=== PATIENT | female | born 1990 | race Caucasian/White ===

== ENCOUNTER → 2017-04-13 11:25 | Outpatient (CLI) | payer OTHER, SELFPAY ==
--- NOTE | 2017-04-13 11:33 | XR_ITS ---
XR foot LT min 3V HISTORY: Pain along the top of the foot in the plantar aspect of the foot ITS.REASON: LEFT FOOT PAIN ORDERING PHYSICIAN: Garrett Denis MD PATIENT AGE: 26 years COMPARISON: None FINDINGS: No fracture or dislocation. No lytic or blastic change. There is normal mineralization.. The joint spaces are well-preserved. No significant degenerative/arthritic changes. No erosive changes evident. IMPRESSION: Negative, no acute finding
== END ==
PROVIDERS: PCP Internal Medicine Adolescent Medicine; Visit Provider Internal Medicine Adolescent Medicine
DX: M79.672 Pain in left foot (principal)
CPT/HCPCS: 73630

== ENCOUNTER → 2018-01-09 12:18 | Outpatient (CLI) | payer OTHER, SELFPAY ==
[2018-01-09 12:32] LABS: Basophils # 0.1 K/mm3 (0-0.2); Basophils % 0.7 % (0.1-2.0); Eosinophils # 0.1 K/mm3 (0.0-0.4); Eosinophils % 1.7 % (0.1-12.0); Hematocrit 40.2 % (37.0-47.0); Hemoglobin 13.1 g/dL (12.2-16.2); Lymphocytes # 2.3 K/mm3 (0.7-4.5); Lymphocytes % 27.9 % (10-50); Mean Corpuscular HGB Conc 32.6 g/dL (31.8-35.4); Mean Corpuscular Hemoglobin 29.9 pg (27.0-31.2); Mean Corpuscular Volume 91.7 fl (81-99); Mean Platelet Volume 7.6 fl (7.4-10.4); Monocytes # 0.5 K/mm3 (0.1-1.0); Monocytes % 5.5 % (1.7-9.3); Neutrophils # 5.2 K/mm3 (1.8-7.8); Neutrophils % 64.1 % (37.0-80.0); Platelet Count 268 K/mm3 (142-424); Red Blood Count 4.39 M/mm3 (4.20-5.40); Red Cell Distribution Width 13.3 % (11.5-17.5); White Blood Count 8.1 K/mm3 (4.8-10.8)
[2018-01-09 13:14] LABS: HCG Qualitative, Serum Negative (Negative)
[2018-01-09 13:17] LABS: Blood Urea Nitrogen 9 mg/dL (7-18); Calcium 8.7 mg/dL (8.5-10.1); Carbon Dioxide 28 mmol/L (21.0-32.0); Chloride 105 mmol/L (98-107); Creatinine,Serum 0.59 mg/dL (0.55-1.02); Estimated Glomerular Filt Rate 123 ml/min (>60); GFR (African American) 149 ML/MIN (>60); Glucose 101 mg/dL (74-106); Sodium 143 mmol/L (136-145)
== END ==
PROVIDERS: Visit Provider Nurse Practitioner Obstetrics & Gynecology
DX: Z01.818 Encounter for other preprocedural examination (principal)
CPT/HCPCS: 36415; 80048; 84703; 85025

== ENCOUNTER 2018-01-13 10:00 | Observation (INO) ==
--- NOTE | 2018-01-13 09:08 | Operative Note ---
Date of procedure: 01/13/18 Pre-op Diagnosis:: Uterovaginal prolapse, enterocele, cystocele, rectocele Post-op Diagnosis:: Uterovaginal prolapse, cystocele, rectocele, enterocele Procedure performed:: Vaginal hysterectomy, bilateral salpingectomy, anterior repair, posterior repair , repair of enterocele Surgeon:: Sukhjinder Munoz MD Compressor House Operator(s):: Shyanne Moseley GAS UTILITY WORKER:: Fabián Pike Anesthesia: GETA Estimated blood loss (mL): 300 Clinical Note:: She is a 27-year-old lady who complains of uterovaginal prolapse. We tried a pessary but it fell out. She had prolapse of the cervix to the vaginal introitus. She had a grade 2 cystocele and a grade 2 rectocele. She had an enterocele. After have just the risks of it she likes to have a vaginal hysterectomy, anterior and posterior repair along with enterocele repair. Operative findings:: She had a normal sized anteverted uterus that prolapsed to the introitus. There is a grade 2 cystocele as well as a grade 2 rectocele. She had an enterocele as well. She had significant laxity of the tissues of the vagina. Her ovaries appeared normal. The fallopian tubes appeared normal and I elected to remove her fallopian tubes at the time of surgery since the ovaries and tubes were easily accessible. Operative note:: She was taken to the operating room where general anesthesia was found be adequate. She was prepped and draped in the normal sterile fashion in the lithotomy position. A weighted speculum was placed in the vagina. The anterior and posterior lip of the cervix were grasped with Rosales tenacula. I then injected 20 cc of 1% Xylocaine with epinephrine circumferentially about the cervix. I then circumscribed the cervix with a knife. I opened up in the posterior cul-de-sac and placed a long weighted speculum through this defect. The left uterosacral ligament was then clamped, cut suture ligated and tagged. This is followed by the left cardinal ligament which was clamped cut and suture ligated. The right uterosacral ligament was then clamped, cut and suture- ligated and tagged. This was followed by the right cardinal ligament which was clamped, cut and suture-ligated. The anterior vaginal mucosa that was then grasped and the bladder was dissected off the anterior cervix. I then opened up into the anterior cul-de-sac. A Paxinos retractor was placed through this defect. I then clamped across the uterine arteries enclosing both the anterior and posterior peritoneum. This was then cut and suture-ligated. I was then able to clamp across the remaining tissue across the utero-ovarian and round ligament complexes. The uterus was then removed from the abdominal cavity. The uterine ovarian complexes were then suture-ligated followed by a free tie. I then closed the posterior cuff using running 2-0 Vicryl suture in a locked fashion. I then placed 2 Castillo sutures to address her enterocele. Using 0 PDS suture I passed the first suture through the posterior vagina and peritoneum. This was then passed through the left perirectal fascia. I then plicated across the posterior peritoneum and through the right perirectal fascia. The suture was then passed through the peritoneum and vagina and left to be tied at the end. The second suture was similarly placed slightly superior to the first suture. I then elected to remove her fallopian tubes. The tube was cut with cautery and then I cauterized along the mesosalpinx and was able to easily remove the tube. This was performed bilaterally. After assuring hemostasis I then packed away the bowel with a warm moist pack. The peritoneum was then closed with 2-0 PDS suture in a pursestring fashion. The packing was then removed. Excellent hemostasis was assured. I then performed an anterior repair by first grasping the vaginal mucosa with 2 Oneco clamps. Using Metzenbaum scissors I made an incision in the midline to approximately 1 cm below the level of the urethra. Using both sharp and blunt dissection I then dissected the bladder away from the vaginal mucosa. I then performed a Blaire plication using 2-0 PDS suture in a [id number] fashion. A small thin strip of vaginal mucosa was removed bilaterally. I then closed the vaginal mucosa using interrupted 2-0 Vicryl suture in a mattress fashion. The vaginal vault was then closed using running 0 Vicryl suture in a locked fashion. I then tied the Castillo sutures in the order in which they were placed. I then performed a posterior repair by first grasping the vaginal mucosa with Teresa clamps near where the yost were from the weighted speculum. I made a V- shaped incision into the perineum. I then grasped the tissue and dissected proximally 1 cm wide piece of vaginal mucosa from the posterior vagina. I then dissected laterally using both sharp and blunt dissection. I dissected up to within 2 cm of the vaginal vault. I then closed the vaginal mucosa using 2-0 Vicryl suture in a locked fashion. I did this in a [id number] fashion. I reapproximated the levator muscles using interrupted 2-0 PDS suture buried beneath the posterior vaginal mucosa. The posterior vaginal mucosa was closed in a running locked fashion of 0 Vicryl suture. I then closed the perineum using 2-0 PDS suture followed by subcuticular 0 Vicryl suture. A Hope cath was then placed in the bladder and clear urine was seen to flow. A vaginal packing was then placed in the vagina. She tolerated the procedure well and was taken to the recovery room in excellent condition. All sponge instrument and needle counts were correct. The estimated blood loss was approximately 300 cc. Condition: stable Disposition: PACU Specimens:: Uterus and fallopian tubes Complications:: None
--- NOTE | 2018-01-13 09:14 | Progress Note ---
[facility] Anesthesia Checklist - Patient Identification Patient Identification: Arm Band - Structural Data Admitted From: Home Planned Operative Procedure/s: tvh, bilateral salpingectomy, a&p repair, enterocele repair Consent for Planned Operative Procedure(s) Verified: Yes Verified Documents: Surgical Consent, History and Physical - NPO Status Verified Time NPO: 00:00 - Additional verifications Anesthesia Reactions: No - Airway Assessment C-Spine Mobility Assessed: Yes (mp2) TMJ Mobility Assessed: Yes Dentition: Good Dentition - Neurological Assessment Level of Consciousness: Awake, Alert - Anesthesia Plan Anesthesia Risk discussed: Yes Anesthesia Plan: Verified ASA Class: I Anesthesia Type: General [facility] History I have reviewed the patient's past medical history: Yes Medical History: Reports:: Gastroesophageal Reflux Disease(GERD), Migraine, Renal Disease Denies:: Cancer, Diabetes Mellitus Type 1, Diabetes Mellitus Type 2, MRSA, Seizures Other Medical History: Reports: Sinus Problems. Denies: Blood Transfusion Reaction Laterality Cases: Bilateral: Tonsillectomy, Other Amputation: No Fractures: No - *Social History Educational Level: Attended College Smoking Status: Never smoker Alcohol Intake: never Alcohol Intake Frequency:: other Substance Use Type: denies use Occupational Status: unemployed Housing: house Household Members: spouse - Psychiatric History Expresses thoughts of harming self/others: None Suicide Plan Description: No Plan *Family Hx:: Cancer, Diabetes ADJUTANT GENERAL history: Spontaneous
--- NOTE | 2018-01-13 09:16 | Progress Note ---
[facility] Anesthesia Record Part II Discharge Time: 09:45 Destination: 2nd floor PACU nurse assessment reviewed?: Yes Patient Condition:: Good Anesthesia Complications:: None
--- NOTE | 2018-01-13 09:16 | Progress Note ---
[place] Anesthesia Record Part I Intake, IV Amount: 1,300 Estimated blood loss (mL): 300 Urine output (mL): 40 Blood Pressure: 100/49 SaO2: 95 Pulse Rate: 53 Respiratory Rate: 16 Temperature: 97.8 F Patient is:: Drowsy, Stable Stable to PACU at:: 09:15
--- NOTE | 2018-01-13 14:07 | Pharmacy Consult Notes ---
[facility] Pharmacy VTE Monitoring - Patient Demographics Admission date: 01/13/18 Report Date: 01/13/18 Time: 14:06 Allergies/Adverse Reactions: Patient Allergies No Known Allergies Allergy (Verified 01/09/18 12:38) Height: 1.55 m Weight: 73.482 kg - VTE Risk Clinical Trial Participant: No - Prophylaxis VTE Prophylaxis Ordered?: Yes Types of VTE Prophylaxis: IPCS Thigh High (POST OP), Pharmacological Location of Applied Device: Bilateral Lower Extremeties Pharmacologic Type: Enoxaparin (POST OP)
[2018-01-13 16:14] LABS: Hematocrit 37.5 % (37.0-47.0); Hemoglobin 12.3 g/dL (12.2-16.2)
[2018-01-14 06:16] LABS: Basophils % 0.1 % (0.1-2.0); Eosinophils # 0.1 K/mm3 (0.0-0.4); Eosinophils % 0.9 % (0.1-12.0); Lymphocytes # 2.5 K/mm3 (0.7-4.5); Lymphocytes % 20.7 % (10-50); Mean Corpuscular HGB Conc 32.8 g/dL (31.8-35.4); Mean Corpuscular Hemoglobin 30.1 pg (27.0-31.2); Mean Corpuscular Volume 91.8 fl (81-99); Mean Platelet Volume 7.4 fl (7.4-10.4); Monocytes # 0.5 K/mm3 (0.1-1.0); Monocytes % 3.9 % (1.7-9.3); Neutrophils % 74.5 % (37.0-80.0); Platelet Count 256 K/mm3 (142-424)
[2018-01-14 06:17] LABS: Hemoglobin 10.8 g/dL (12.2-16.2)
[2018-01-14 06:26] LABS: Anion Gap 11.6 mEq/L (5-15); Calcium 8.2 mg/dL (8.5-10.1); Potassium 3.6 mmoL/L (3.5-5.1)
--- NOTE | 2018-01-14 10:43 | Discharge Summary ---
General - General Admission date:: 01/13/18 Discharge date: 01/14/18 HPI HPI: She is a 27-year-old lady who complains of uterovaginal prolapse. She had prolapse of this to the introitus. She also had a grade 2 cystocele grade 2 rectocele as well as an enterocele. She was offered vaginal hysterectomy, anterior repair, posterior repair and enterocele repair. Hospital Course Hospital Course: On December 22, 2017 she underwent a vaginal hysterectomy, anterior and posterior repair along with repair of enterocele. Also elected to remove her fallopian tubes since they were easily accessible. She has done well operatively and has remained afebrile throughout her hospitalization. She is eating and drinking and ambulating. She denies any shortness of breath, chest pain or calf tenderness. She has had her Hope catheter removed and is voiding well. She has not had a bowel movement. Her pain is well controlled with oral narcotic pain medicine as well as oral Toradol. She will be discharged home today to follow-up with me in approximately 2 weeks time. She was given the usual instructions with respect to limiting her activity, driving and sexual activity. She was given instructions to nut picker a stool softener. She was given a prescription for Percocet 5/325, 30 tablets. She also has ibuprofen at home and will take this as well. Her condition on discharge is stable. Objective Vital signs: Temp Pulse Resp BP Pulse Ox 98.0 F 69 18 125/81 100 01/14/18 09:32 01/14/18 09:32 01/14/18 09:32 01/14/18 09:32 01/14/18 09:39 - Detailed Eye Exam Eyelids: Left normal inspection Results Labs on day of discharge: Labs from last 24 hours 01/14/18 01/14/18 01/13/18 06:07 06:07 16:03 WBC 12.0 H RBC 3.60 L Hgb 10.8 L D 12.3 Hct 33.0 L 37.5 MCV 91.8 MCH 30.1 MCHC 32.8 RDW 13.0 Plt Count 256 MPV 7.4 Neut % (Auto) 74.5 Lymph % (Auto) 20.7 Garrard % (Auto) 3.9 Eos % (Auto) 0.9 Baso % (Auto) 0.1 Neut # (Auto) 9.0 H Lymph # (Auto) 2.5 Garrard # (Auto) 0.5 Eos # (Auto) 0.1 Baso # (Auto) 0.0 Sodium 141 Potassium 3.6 Chloride 106 Carbon Dioxide 27 Anion Gap 11.6 BUN 6 L Creatinine 0.69 Estimated Creat Clear 143 Estimated GFR 103 Est GFR ( Amer) 124 Glucose 136 H Calcium 8.2 L Preliminary micro results at discharge 01/13/18 08:51 Urine Culture - Preliminary Urine,Catheterized NO GROWTH AFTER 24 HOURS DS: Diagnosis - Discharge Diagnosis (1) Uterovaginal prolapse, incomplete Status: Acute (2) Cystocele with prolapse Status: Acute (3) Cystocele with rectocele Status: Acute (4) Pelvic enterocele, congenital or acquired Status: Acute Discharge Plan - Patient Discharge Instructions ACTIVITY: No heavy lifting DIET: continue same diet Patient Instructions: DI for Vaginal Hysterectomy - Follow up Plan Disposition: Home, Self-Senior Care Medications: Home Medications Medication Instructions Recorded Confirmed Type diclofenac sodium 75 mg 75 mg PO BID 03/29/17 01/09/18 History tablet,delayed release magnesium 200 mg tablet 100 mg PO DAILY tab 03/29/17 01/13/18 History Prescriptions/Medication Reconciliation: New Oxycodone HCl/Acetaminophen [Percocet 5/325mg tablet] 1 - 2 tab PO Q4-6H PRN #30 tab PRN Reason: Severe Pain Continue diclofenac sodium 75 mg tablet,delayed release 75 mg PO BID magnesium 200 mg tablet 100 mg PO DAILY tab
== END 2018-01-14 10:50 | disposition home or self-care (01) ==
PROVIDERS: ADMIT Nurse Practitioner Obstetrics & Gynecology; ATTEND Nurse Practitioner Obstetrics & Gynecology

== ENCOUNTER → 2020-08-26 16:19 | Outpatient (CLI) | payer OTHER, SELFPAY ==
[2020-08-26 16:35] LABS: Basophils # 0.1 K/mm3 (0-0.2); Basophils % 0.7 % (0.1-2.0); Eosinophils # 0.2 K/mm3 (0.0-0.4); Hematocrit 42.3 % (37.0-47.0); Hemoglobin 13.9 g/dL (12.2-16.2); Lymphocytes # 3.2 K/mm3 (0.7-4.5); Lymphocytes % 39.6 % (10-50); Mean Corpuscular HGB Conc 32.9 g/dL (31.8-35.4); Mean Corpuscular Hemoglobin 29.5 pg (27.0-31.2); Mean Corpuscular Volume 89.7 fl (81-99); Mean Platelet Volume 7.5 fl (7.4-10.4); Monocytes # 0.4 K/mm3 (0.1-1.0); Neutrophils # 4.3 K/mm3 (1.8-7.8); Neutrophils % 52.7 % (37.0-80.0); Platelet Count 284 K/mm3 (142-424); Red Blood Count 4.71 M/mm3 (4.20-5.40); Red Cell Distribution Width 12.4 % (11.5-17.5); White Blood Count 8.1 K/mm3 (4.8-10.8)
[2020-08-26 17:19] LABS: Alanine Aminotransferase 64 U/L (12-78); Albumin Level 4.9 g/dl (3.5-5.0); Albumin/Globulin Ratio 1.6 (1.1-1.8); Alkaline Phosphatase 72 U/L (38-126); Anion Gap 18.1 mEq/L (5-15); Aspartate Amino Transferase 52 U/L (14-36); Bilirubin,Total 0.5 mg/dl (0.2-1.3); Blood Urea Nitrogen 6 mg/dl (7-17); Calcium 9.7 mg/dl (8.4-10.2); Carbon Dioxide 26 mmol/L (22.0-30.0); Chloride 103 mmol/L (98-107); Estimated Glomerular Filt Rate 118 ml/min (>60); GFR (African American) 143 ML/MIN (>60); Glucose 108 mg/dl (74-100); Potassium 4.1 mmoL/L (3.5-5.1); Sodium 143 mmol/L (136-145); Total Protein,Serum 7.9 g/dl (6.3-8.2)
[2020-08-27 12:09] LABS: Hemoglobin A1C 5.4 % (4.0-6.0)
== END ==
PROVIDERS: Internal Medicine Adolescent Medicine; Visit Provider Nurse Practitioner Family
DX: R10.11 Right upper quadrant pain (principal); K52.9 Noninfective gastroenteritis and colitis, unspecified; R73.9 Hyperglycemia, unspecified
CPT/HCPCS: 36415; 80053; 83036; 85025

== ENCOUNTER → 2020-09-01 08:30 | Outpatient (CLI) | payer OTHER, SELFPAY ==
--- NOTE | 2020-09-01 08:34 | US_ITS ---
PROCEDURE: US GALLBLADDER CLINICAL INDICATION: RUQ PAIN COMPARISON: No exams were available for comparison FINDINGS: Pancreas: Visualized pancreas is unremarkable. Liver: Diffuse fatty infiltration of the liver. No focal liver lesions are noted.. There is appropriate direction of blood flow within a non dilated portal vein. Right kidney: Unremarkable appearing. No hydronephrosis. Right kidney measures 11.4 x 3.1 x 4.9 centimeters. Gallbladder: No stones are evident. Small amount of sludge is noted within the gallbladder. There is a focal isoechoic lesion noted in the nondependent portion of the gallbladder measuring approximately 3 millimeters, most likely represents a polyp. There is no gallbladder wall thickening. Common duct is normal in diameter. IMPRESSION: Polyp in the gallbladder. Small amount of sludge. No gallbladder calculi are noted Dictated by: Layla Dillon 09/01/2020 10:55 Layla Dillon in OV 09/01/2020 10:55
[2020-09-01 10:25] LABS: Alanine Aminotransferase 74 U/L (12-78); Albumin/Globulin Ratio 1.6 (1.1-1.8); Alkaline Phosphatase 77 U/L (38-126); Anion Gap 14.6 mEq/L (5-15); Aspartate Amino Transferase 58 U/L (14-36); Bilirubin,Total 0.7 mg/dl (0.2-1.3); Blood Urea Nitrogen 10 mg/dl (7-17); Calcium 9.5 mg/dl (8.4-10.2); Carbon Dioxide 28 mmol/L (22.0-30.0); Chloride 103 mmol/L (98-107); Estimated Glomerular Filt Rate 99 ml/min (>60); GFR (African American) 120 ML/MIN (>60); Globulin 3.1 g/dL (1.3-3.2); Glucose 101 mg/dl (74-100); Potassium 4.6 mmoL/L (3.5-5.1); Sodium 141 mmol/L (136-145); Total Protein,Serum 8.1 g/dl (6.3-8.2)
== END ==
PROVIDERS: PCP Internal Medicine Adolescent Medicine; Visit Provider Nurse Practitioner Family
DX: R10.11 Right upper quadrant pain (principal); R74.8 Abnormal levels of other serum enzymes
CPT/HCPCS: 36415; 76705; 80053

== ENCOUNTER → 2020-09-02 09:35 | Outpatient (CLI) | payer OTHER, SELFPAY ==
[2020-09-02 14:46] LABS: Alanine Aminotransferase 81 U/L (12-78); Albumin/Globulin Ratio 1.7 (1.1-1.8); Alkaline Phosphatase 76 U/L (38-126); Anion Gap 15.5 mEq/L (5-15); Aspartate Amino Transferase 63 U/L (14-36); Bilirubin,Total 0.7 mg/dl (0.2-1.3); Blood Urea Nitrogen 10 mg/dl (7-17); Calcium 9.6 mg/dl (8.4-10.2); Carbon Dioxide 26 mmol/L (22.0-30.0); Chloride 103 mmol/L (98-107); Estimated Glomerular Filt Rate 99 ml/min (>60); GFR (African American) 120 ML/MIN (>60); Glucose 96 mg/dl (74-100); Potassium 4.5 mmoL/L (3.5-5.1); Sodium 140 mmol/L (136-145)
[2020-09-04 09:51] LABS: Hep A Ab, IgM Negative (Negative); Hepatitis B Core Antibody IgM Negative (Negative); Hepatitis B Surface Antigen Negative (Negative); Hepatitis C Antibody <0.1 s/co ratio (0.0-0.9)
== END ==
PROVIDERS: Visit Provider Nurse Practitioner Family
DX: R10.11 Right upper quadrant pain (principal); R74.8 Abnormal levels of other serum enzymes
CPT/HCPCS: 36415; 80053; 80074

== ENCOUNTER → 2020-09-20 09:06 | Outpatient (CLI) | payer OTHER, SELFPAY ==
[2020-09-20 09:43] LABS: Urine Pregnancy, HCG Qual. Negative (Negative)
[2020-09-20 09:52] LABS: Basophils # 0.1 K/mm3 (0-0.2); Basophils % 0.9 % (0.1-2.0); Eosinophils # 0.1 K/mm3 (0.0-0.4); Eosinophils % 1.1 % (0.1-12.0); Hematocrit 39.8 % (37.0-47.0); Hemoglobin 13.8 g/dL (12.2-16.2); Lymphocytes # 2.8 K/mm3 (0.7-4.5); Lymphocytes % 38.9 % (10-50); Mean Corpuscular HGB Conc 34.7 g/dL (31.8-35.4); Mean Corpuscular Hemoglobin 30.4 pg (27.0-31.2); Mean Corpuscular Volume 87.7 fl (81-99); Mean Platelet Volume 8.3 fl (7.4-10.4); Monocytes # 0.4 K/mm3 (0.1-1.0); Monocytes % 6.2 % (1.7-9.3); Neutrophils # 3.7 K/mm3 (1.8-7.8); Neutrophils % 52.9 % (37.0-80.0); Platelet Count 283 K/mm3 (142-424); Red Blood Count 4.54 M/mm3 (4.20-5.40); Red Cell Distribution Width 13.3 % (11.5-17.5); White Blood Count 7.1 K/mm3 (4.8-10.8)
[2020-09-20 11:22] LABS: Chloride 106 mmol/L (98-107); Potassium 4.2 mmoL/L (3.5-5.1); Sodium 141 mmol/L (136-145)
[2020-09-20 11:25] LABS: Alanine Aminotransferase 65 U/L (12-78); Albumin Level 4.4 g/dl (3.5-5.0); Albumin/Globulin Ratio 1.5 (1.1-1.8); Alkaline Phosphatase 76 U/L (38-126); Anion Gap 13.2 mEq/L (5-15); Aspartate Amino Transferase 51 U/L (14-36); Bilirubin,Total 0.5 mg/dl (0.2-1.3); Blood Urea Nitrogen 7 mg/dl (7-17); Calcium 9.1 mg/dl (8.4-10.2); Carbon Dioxide 26 mmol/L (22.0-30.0); Estimated Glomerular Filt Rate 118 ml/min (>60); GFR (African American) 143 ML/MIN (>60); Glucose 110 mg/dl (74-100); Total Protein,Serum 7.4 g/dl (6.3-8.2)
== END ==
PROVIDERS: Visit Provider Surgery
DX: Z01.812 Encounter for preprocedural laboratory examination (principal); Z11.52 Encounter for screening for COVID-19; K82.9 Disease of gallbladder, unspecified
CPT/HCPCS: 80053; 81025; 85025; U0003

== ENCOUNTER 2020-09-23 09:28 | Day surgery (SDC) | payer OTHER, SELFPAY ==
[2020-09-18 14:41] VITALS: BMI 32.1
[2020-09-23] VITALS (10 sets, daily range): BP systolic 111–134; BP diastolic 66–88; PULSE 55–71; RESP 12–18; TEMP 36.3–43; O2SAT 97–99
--- NOTE | 2020-09-23 10:16 | HMH.ANESCL ---
[facility] Anesthesia Checklist - Patient Identification Patient Identification: Arm Band - Structural Data Admitted From: Home Planned Operative Procedure/s: Laparoscopic Cholecystectomy Consent for Planned Operative Procedure(s) Verified: Yes Verified Documents: Surgical Consent, History and Physical - NPO Status Verified Time NPO: 00:00 - Additional verifications Anesthesia Reactions: No Hx Blood Transfusions: No Blood Transfusion Reaction: No - Airway Assessment C-Spine Mobility Assessed: Yes (mp2) TMJ Mobility Assessed: Yes Dentition: Good Dentition - Neurological Assessment Level of Consciousness: Awake, Alert - Anesthesia Plan Anesthesia Risk discussed: Yes Anesthesia Plan: Verified ASA Class: II Anesthesia Type: General [facility] History I have reviewed the patient's past medical history: Yes Medical History: Reports:: Anxiety, Gastroesophageal Reflux Disease(GERD), Migraine Denies:: Cancer, Diabetes Mellitus Type 1, Diabetes Mellitus Type 2, MRSA, Seizures *Have you ever received a pneumonia vaccine?: No *Have you received a flu vaccine this season?: Yes Other Medical History: Reports: Sinus Problems. Denies: Blood Transfusion Reaction Anesthesia experience/problems:: nac Laterality Cases: Bilateral: Tonsillectomy, Other Other Surgeries: Yes: Hysterectomy-Partial Amputation: No Fractures: No - *Social History Last grade of school completed: Some college Smoking Status: Current every day smoker Tobacco Type: e-cigarettes # Packs/Day (cigarettes): 1 Alcohol Intake: never Alcohol Intake Frequency:: holidays/special occasions only Substance Use Type: denies use *Occupational Status:: unemployed Housing: house Household Members: spouse *Travel in the last 8 weeks: None Family Hx:: Cancer BREAKER UP history: Spontaneous
--- NOTE | 2020-09-23 11:34 | HMH.OPNOTE ---
Date of procedure: 09/23/20 Pre-op Diagnosis:: Gallbladder disease Post-op Diagnosis:: Same Procedure performed:: Laparoscopic cholecystectomy Surgeon:: Tu Bowles MD PROCESSING TALC AND BORATE SUPERVISOR:: Slava Menon Anesthesia: GETA Estimated blood loss (mL): 15 Clinical Note:: Patient is a 30-year-old female referred by Laverne Dykes and Dr. Garrett Denis's office for gallbladder. occurred when she was She states that about 2 weeks ago she had a severe attack which was consistent with biliary colic. This occurred while she was sitting on the couch. She had severe right upper quadrant pain. She states that the pain was more severe than childbirth. Retrospectively, she states that she has had some similar symptoms but much less severe over a couple of years. She subsequently underwent gallbladder ultrasound which reveals biliary sludge and findings of possible polyp measuring 3 mm. She states that since she had that severe attack 2 weeks ago she has had at least a couple of more attacks but much more minor. The options were discussed with the patient. She strongly desired proceeding with cholecystectomy as soon as possible. Operative findings:: She had a somewhat distended gallbladder. There was appreciable fatty infiltration of the liver. Operative note:: Patient was taken to the operating room. She was given preoperative intravenous antibiotics. In the operating room she was placed in a supine position. General anesthesia was induced via endotracheal tube. Abdomen was prepped and draped in the standard surgical fashion. Subumbilical skin incision was made and while performing abdominal wall left Veress needle was inserted. CO2 pneumoperitoneum was achieved to 15 mmHg. 11 mm optical trocar was inserted at the umbilicus. Intraperitoneal contents were visualized. She was positioned in reverse Trendelenburg left side down. A couple 5 mm trochars were inserted in the right abdomen. This was actually in the right mid abdomen due to some enlargement of the fatty liver. 10 mm trocar was inserted in the epigastrium. Liver was elevated. Gallbladder was identified and grasped retracted anteriorly and superiorly over the dome of the liver. Infundibulum/Rutherford's pouch of the gallbladder was retracted anterolaterally. Blunt dissection was carried out the neck of the gallbladder bluntly incising the visceral peritoneum. Careful dissection was carried out isolating the cystic duct and cystic artery. Cystic duct was isolated, multiply clipped, and sharply divided. Cystic artery was carefully coagulated with SHYAM ultrasonic harmonic bonita and divided. Gallbladder was dissected free from the liver in a retrograde fashion using SHYAM ultrasonic robotic bonita. Gallbladder was placed within an Endo Catch retrieval device and removed the peritoneal cavity via the umbilical trocar site. Limited irrigation and suctioning was performed of the gallbladder fossa and perihepatic space. There appeared to be good hemostasis. Trochars were removed as CO2 pneumoperitoneum was evacuated. Fascia at the umbilicus was closed with 0 Vicryl suture. Local anesthetic was infiltrated. Skin incisions were closed with 4-0 Monocryl subcuticular fashion. Steri-Strips and dressings were applied. Condition: stable Disposition: PACU Specimens:: Gallbladder and contents Complications:: None immediately apparent
--- NOTE | 2020-09-23 11:43 | P.PN_ITS ---
[facility] Anesthesia Record Part I Intake, IV Amount: 1,200 Estimated blood loss (mL): 0 Urine output (mL): 0 Blood Pressure: 134/80 SaO2: 97 Pulse Rate: 71 Respiratory Rate: 12 Temperature: 97.8 F Patient is:: Awake, Stable Stable to PACU at:: 11:40
--- NOTE | 2020-09-23 12:32 | SUR.PHASEII ---
NORCO 5/325MG GIVEN ORDERED.
--- NOTE | 2020-09-24 11:00 | HMH.ANESII ---
[facility] Anesthesia Record Part II Discharge Time: 11:59 Destination: Surgical Day Care (OP Surgery) PACU nurse assessment reviewed?: Yes Patient Condition:: Good Anesthesia Complications:: None Swallowing reflex intact?: Yes Cyanosis?: No Blood Pressure: 126/85 Pulse Rate: 59 Temperature: 98.4 F Mental Status: Alert & Oriented Pain level:: 0 Nausea and/or vomitting:: None Intake, IV Amount: 0
[2020-09-24 11:01] VITALS: BP 126/85; PULSE 59; TEMP 36.9
== END 2020-09-23 12:45 | disposition home or self-care (01) ==
LOC: OR 09:29
PROVIDERS: PCP Internal Medicine Adolescent Medicine; Visit Provider Surgery
PROC: 0FT44ZZ Resection of Gallbladder, Percutaneous Endoscopic Approach (ICD-10-PCS; CPT 47562; principal; 2020-09-23 11:00)
DX: K82.9 Disease of gallbladder, unspecified (principal); K76.0 Fatty (change of) liver, not elsewhere classified; K21.9 Gastro-esophageal reflux disease without esophagitis; G43.909 Migraine, unspecified, not intractable, without status migrainosus; F41.9 Anxiety disorder, unspecified; Z72.0 Tobacco use; Z79.899 Other long term (current) drug therapy; Z80.9 Family history of malignant neoplasm, unspecified
CPT/HCPCS: 47562; 96374; J2405; J2710

== ENCOUNTER 2020-09-29 13:01 | Outpatient (CLI) | payer OTHER, SELFPAY ==
[2020-09-29 13:10] VITALS: BP 142/78; PULSE 68; RESP 20; TEMP 37.2; O2SAT 95
[2020-09-29 13:30] VITALS: BP 128/74; PULSE 68; RESP 20; TEMP 36.9
== END 2020-09-29 13:30 | disposition home or self-care (01) ==
LOC: INF 13:04
PROVIDERS: PCP Internal Medicine Adolescent Medicine; Visit Provider Surgery
DX: Z90.49 Acquired absence of other specified parts of digestive tract (principal); K91.5 Postcholecystectomy syndrome
CPT/HCPCS: 96372

== ENCOUNTER → 2021-03-07 10:20 | Outpatient (CLI) | payer OTHER, SELFPAY ==
[2021-03-07 10:24] LABS: Adenovirus F 40/41, stool Not Detected (NotDetected); Astrovirus Not Detected (NotDetected); Campylobacter Not Detected (NotDetected); Clostridium Difficile A/B, PCR Not Detected (NotDetected); Cryptosporidium Not Detected (NotDetected); Cyclospora Cayetanesis Not Detected (NotDetected); Entamoeba histolytica Not Detected (NotDetected); Enteroaggregative E coli Not Detected (NotDetected); Enteropathogenic E coli Not Detected (NotDetected); Enterotoxigenic E coli Not Detected (NotDetected); Giardia lamblia Not Detected (NotDetected); Norovirus Not Detected (NotDetected); Plesimonas Shigalloides, PCR Not Detected (NotDetected); Rotavirus A Not Detected (NotDetected); Salmonella, PCR Not Detected (NotDetected); Sapovirus Not Detected (NotDetected); Shiga-like toxin E coli Not Detected (NotDetected); Shigella Enterovasive E coli Not Detected (NotDetected); Vibrio Cholerae Not Detected (NotDetected); Vibrio, PCR Not Detected (NotDetected); Yersinia Entercolitica, PCR Not Detected (NotDetected)
[2021-03-10 15:18] LABS: Calprotectin, Fecal 30 ug/g (0-120)
[2021-03-11 15:12] LABS: Lactoferrin, Fecal, Quant. <1.00 ug/mL(g) (0.00-7.24)
== END ==
LOC: LAB 10:20
PROVIDERS: PCP Internal Medicine Adolescent Medicine; Visit Provider Internal Medicine Adolescent Medicine
DX: R10.84 Generalized abdominal pain (principal)
CPT/HCPCS: 83630; 83993; 87507

== ENCOUNTER → 2021-03-09 07:58 | Outpatient (CLI) | payer OTHER, SELFPAY ==
[2021-03-09 08:02] LABS: Microscopic, Urine URINE MICROSCOPIC (MICROSCOPIC)
[2021-03-09 08:38] LABS: Appearance,Urine CLEAR (Clear); Bilirubin,Urine Negative (Negative); Blood, Urine Negative (Negative); Color,Urine YELLOW (Yellow); Glucose,Urine (UA) Negative (Negative); Ketones,Urine Negative (Negative); Leukocyte Esterase,Urine Negative (Negative); Nitrate,Urine Negative (Negative); Protein,Urine Negative (Negative); Specific Gravity, Urine >= 1.030 (1.005-1.030); Urobilinogen,Urine 0.2 EU/dl (0.2)
[2021-03-09 09:05] LABS: Basophils # 0.1 K/mm3 (0-0.2); Basophils % 1.2 % (0.1-2.0); Eosinophils # 0.1 K/mm3 (0.0-0.4); Eosinophils % 1.2 % (0.1-12.0); Hematocrit 44.4 % (37.0-47.0); Lymphocytes # 2.9 K/mm3 (0.7-4.5); Lymphocytes % 35.2 % (10-50); Mean Corpuscular HGB Conc 33.8 g/dL (31.8-35.4); Mean Corpuscular Hemoglobin 31.1 pg (27.0-31.2); Mean Corpuscular Volume 92.1 fl (81-99); Mean Platelet Volume 8.5 fl (7.4-10.4); Monocytes # 0.5 K/mm3 (0.1-1.0); Monocytes % 6.3 % (1.7-9.3); Neutrophils # 4.6 K/mm3 (1.8-7.8); Neutrophils % 56.1 % (37.0-80.0); Platelet Count 331 K/mm3 (142-424); Red Blood Count 4.82 M/mm3 (4.20-5.40); Red Cell Distribution Width 12.8 % (11.5-17.5); White Blood Count 8.2 K/mm3 (4.8-10.8)
[2021-03-09 09:57] LABS: Chloride 104 mmol/L (98-107)
[2021-03-09 09:58] LABS: Potassium 4.3 mmoL/L (3.5-5.1); Sodium 138 mmol/L (136-145)
[2021-03-09 10:00] LABS: Amylase 68 U/L (30-110); Blood Urea Nitrogen 11 mg/dl (7-17); Estimated Glomerular Filt Rate 118 ml/min (>60); GFR (African American) 143 ML/MIN (>60)
[2021-03-09 10:01] LABS: Alanine Aminotransferase 36 U/L (12-78); Albumin Level 4.8 g/dl (3.5-5.0); Albumin/Globulin Ratio 1.6 (1.1-1.8); Alkaline Phosphatase 52 U/L (38-126); Anion Gap 14.3 mEq/L (5-15); Aspartate Amino Transferase 39 U/L (14-36); Bilirubin,Total 0.6 mg/dl (0.2-1.3); Calcium 9.3 mg/dl (8.4-10.2); Carbon Dioxide 24 mmol/L (22.0-30.0); Glucose 107 mg/dl (74-100); Lipase 183 U/L (23-300); Total Protein,Serum 7.8 g/dl (6.3-8.2)
[2021-03-09 19:25] LABS: Squamous Epithelial Cell,Urine Occasional #/hpf (0-5)
== END ==
LOC: LAB 07:59
PROVIDERS: PCP Internal Medicine Adolescent Medicine; Visit Provider Internal Medicine Adolescent Medicine
DX: R10.13 Epigastric pain (principal)
CPT/HCPCS: 36415; 80053; 81001; 82150; 83690; 85025

== ENCOUNTER 2021-03-09 20:06 | Emergency (ER) | payer OTHER, SELFPAY ==
[2021-03-09 20:07] VITALS: BP 149/85; PULSE 80; RESP 16; TEMP 36.5; O2SAT 99; BMI 29.2
--- NOTE | 2021-03-09 20:17 | CT_ITS ---
PROCEDURE INFORMATION: Exam: CT Abdomen And Pelvis With Contrast Exam date and time: 03/09/2021 8:17 PM Age: 30 years old Clinical indication: Abdominal pain TECHNIQUE: Imaging protocol: Computed tomography of the abdomen and pelvis with contrast. Radiation optimization: All CT scans at this facility use at least one of these dose optimization techniques: automated exposure control; mA and/or kV adjustment per patient size (includes targeted exams where dose is matched to clinical indication); or iterative reconstruction. Contrast material: ISOVUE; Contrast volume: 75 ml; Contrast route: IV; COMPARISON: CT ABDOMEN PELVIS W CON 09/24/2018 12:10 PM FINDINGS: Lungs: No mass/infiltrate at either lung base. No pleural effusion. Liver: The liver appears enlarged. There is no evidence of intra hepatic mass. No evidence of intrahepatic biliary dilatation. Gallbladder and bile ducts: The gallbladder is surgically absent. No evidence of extrahepatic biliary dilatation. Pancreas: Normal. No ductal dilation. Spleen: Normal. No splenomegaly. Adrenal glands: Normal. No mass. Kidneys and ureters: Normal. No hydronephrosis. Stomach and bowel: Unremarkable. No obstruction. No mucosal thickening. Small bowel mesentery is normal. Appendix: Unremarkable. Intraperitoneal space: There is a small amount of free fluid present within the cul-de-sac. No evidence of free air. Vasculature: Unremarkable. No abdominal aortic aneurysm. Lymph nodes: Unremarkable. No enlarged lymph nodes. Urinary bladder: Unremarkable as visualized. Reproductive: The uterus is difficult to visualize on this examination. There is a 3.2 cm peripherally enhancing structure present within the left adnexal region thought to represent the left ovary. The right ovary is not clearly visualized on this examination. Bones/joints: Unremarkable. No acute fracture. Soft tissues: There is a small umbilical hernia which contains fat. IMPRESSION: 1. The appendix is visualized and unremarkable. No evidence of acute process within the abdomen. 2. Difficulty in visualizing the uterus and the right ovary. This raises the possibility of prior hysterectomy and right salpingo oophorectomy. 3. Small amount of nonspecific free fluid identified within the cul-de-sac. 4. There is a small umbilical hernia which contains fat.
[2021-03-09 20:31] VITALS: BP 115/76; PULSE 88; O2SAT 100
[2021-03-09 20:59] LABS: Alanine Aminotransferase 37 U/L (12-78); Albumin/Globulin Ratio 1.5 (1.1-1.8); Alkaline Phosphatase 62 U/L (38-126); Amylase 80 U/L (30-110); Anion Gap 15.8 mEq/L (5-15); Aspartate Amino Transferase 47 U/L (14-36); Bilirubin,Total 0.4 mg/dl (0.2-1.3); Blood Urea Nitrogen 12 mg/dl (7-17); Calcium 9.5 mg/dl (8.4-10.2); Carbon Dioxide 24 mmol/L (22.0-30.0); Chloride 102 mmol/L (98-107); Creatinine Clearance Estimated 159 mL/min (50-200); Estimated Glomerular Filt Rate 118 ml/min (>60); GFR (African American) 143 ML/MIN (>60); Globulin 3.4 g/dL (1.3-3.2); Glucose 93 mg/dl (74-100); Lipase 75 U/L (23-300); Potassium 3.8 mmoL/L (3.5-5.1); Sodium 138 mmol/L (136-145); Total Protein,Serum 8.4 g/dl (6.3-8.2)
[2021-03-09 21:00] VITALS: BP 120/77; PULSE 72; O2SAT 100
--- NOTE | 2021-03-09 21:01 | HMH.EDNVD ---
ED Disposition Clinical Impression: Abdominal pain Qualifiers: Abdominal location: right upper quadrant Qualified Code(s): R10.11 - Right upper quadrant pain Disposition: Home, Self-Care Condition on Discharge: Good Instructions: DI for Acute Abdominal Pain Additional Instructions: use meds and call pcp for follow up Referrals: Garrett Denis MD [Primary Care Provider] - - Critical Care Critical Care Time: No Attestation: On 03/09/21, the high probability of a clinically significant, sudden or life threatening deterioration of the following system(s) required my full and direct attention, intervention and personal management. The time I documented below is in addition to time spent performing reported procedures but includes the following listed in this critical care notation. Medical Decision Making - Medical Records Medical records reviewed: Yes: I reviewed the patient's medical records. - Darius Inquiry Pt receiving controlled substance: No Vital Signs: 03/09/21 20:07 03/09/21 20:31 03/09/21 21:00 Temperature 97.7 F Temperature Source Oral Pulse Rate 88 72 Pulse Rate [Right Radial] 80 Respiratory Rate 16 Blood Pressure 115/76 120/77 Blood Pressure [Right Arm] 149/85 H Blood Pressure Mean [Right Arm] 106 Blood Pressure Source [Right Arm] Automatic Cuff Blood Pressure Position [Right Arm] Sitting 02 Sat by Pulse Oximetry 99 100 100 Oxygen Delivery Method Room Air Room Air Room Air 03/09/21 22:00 Temperature Temperature Source Pulse Rate 70 Pulse Rate [Right Radial] Respiratory Rate Blood Pressure 103/80 L Blood Pressure [Right Arm] Blood Pressure Mean [Right Arm] Blood Pressure Source [Right Arm] Blood Pressure Position [Right Arm] 02 Sat by Pulse Oximetry 100 Oxygen Delivery Method Room Air - Lab Data Lab results reviewed: Yes: I reviewed the patient's lab results. Lab Results 03/09/21 20:12: Urine HCG, Qual Negative 03/09/21 20:37: WBC 9.1, RBC 4.90, Hgb 14.8, Hct 45.4, MCV 92.5, MCH 30.2, MCHC 32.6, RDW 12.9, Plt Count 294, MPV 8.0, Neut % (Auto) 58.1, Lymph % (Auto) 33.8, [place] % (Auto) 5.8, Eos % (Auto) 0.9, Baso % (Auto) 1.3, Neut # (Auto) 5.3, Lymph # (Auto) 3.1, [place] # (Auto) 0.5, Eos # (Auto) 0.1, Baso # (Auto) 0.1 03/09/21 20:37: Sodium 138, Potassium 3.8, Chloride 102, Carbon Dioxide 24, Anion Gap 15.8 H, BUN 12, Creatinine 0.60, Estimated Creat Clear 159, Estimated GFR 118, Est GFR ( Amer) 143, Glucose 93, Calcium 9.5, Total Bilirubin 0.4, AST 47 H, ALT 37, Alkaline Phosphatase 62, C-Reactive Protein 2.3, Total Protein 8.4 H, Albumin 5.0, Globulin 3.4 H, Albumin/Globulin Ratio 1.5, Lipase 75 03/09/21 20:37: ESR 16 03/09/21 20:37: Amylase 80 D, Procalcitonin 0.035 Result diagrams: 03/09/21 20:37 03/09/21 20:37 Orders (Tests/Meds): ED MEDICATIONS Generic Name Dose Route Start Last Admin Trade Name Freq PRN Reason Stop Dose Admin Sodium Chloride 1,000 mls @ 999 mls/hr 03/09/21 20:30 03/09/21 20:48 Sod Chlor 0.9% 1000ml Bag IV 03/09/21 21:30 999 mls/hr .Q1H1M IVON Administration Discontinued Medications Generic Name Dose Route Start Last Admin Trade Name Freq PRN Reason Stop Dose Admin Iopamidol 75 ml 03/09/21 21:22 03/09/21 21:32 Iopamidol-370 (76%);100ml Bottle IV 03/09/21 21:23 75 ml ONCE ONE Administration Ketorolac Tromethamine 30 mg 03/09/21 20:21 03/09/21 20:47 Ketorolac 30mg/Ml Vial IV 03/09/21 20:22 30 mg ONCE ONE Administration Ondansetron HCl 4 mg 03/09/21 20:21 03/09/21 20:47 Ondansetron 4mg/2ml Vial IV 03/09/21 20:22 4 mg ONCE ONE Administration Sodium Chloride 10 ml 03/09/21 21:22 03/09/21 21:32 Sodium Chloride 0.9% 10ml Syr (Rad Only) IV 01/24/22 21:23 10 ml ONCE ONE Administration - CT Data CT Scan: Abdomen, Pelvis Time Received: 22:[address] Reviewed: Yes: I have viewed the radiologist's interpretation Preliminary Findings: Abnormal (see report )
[2021-03-09 21:04] LABS: C-Reactive Protein 2.3 mg/L (0-4)
[2021-03-09 21:08] LABS: Urine Pregnancy, HCG Qual. Negative (Negative)
[2021-03-09 21:10] LABS: Basophils # 0.1 K/mm3 (0-0.2); Basophils % 1.3 % (0.1-2.0); Eosinophils # 0.1 K/mm3 (0.0-0.4); Eosinophils % 0.9 % (0.1-12.0); Hematocrit 45.4 % (37.0-47.0); Hemoglobin 14.8 g/dL (12.2-16.2); Lymphocytes # 3.1 K/mm3 (0.7-4.5); Lymphocytes % 33.8 % (10-50); Mean Corpuscular HGB Conc 32.6 g/dL (31.8-35.4); Mean Corpuscular Hemoglobin 30.2 pg (27.0-31.2); Mean Corpuscular Volume 92.5 fl (81-99); Monocytes # 0.5 K/mm3 (0.1-1.0); Monocytes % 5.8 % (1.7-9.3); Neutrophils # 5.3 K/mm3 (1.8-7.8); Neutrophils % 58.1 % (37.0-80.0); Platelet Count 294 K/mm3 (142-424); Red Cell Distribution Width 12.9 % (11.5-17.5); White Blood Count 9.1 K/mm3 (4.8-10.8)
[2021-03-09 21:18] LABS: Procalcitonin 0.035 ng/mL (0.0-2.0)
[2021-03-09 21:35] LABS: Erythrocyte Sedimentation Rate 16 mm/hr (0-20)
[2021-03-09 22:00] VITALS: BP 103/80; PULSE 70; O2SAT 100
--- NOTE | 2021-03-09 22:08 | PC.NURSE ---
UA OBTAINED OUTPATIENT- LAB CX CURRENT ORDER.
--- NOTE | 2021-03-09 22:38 | PC.NURSE ---
MD Padma speaking with CHRIS at this time
[2021-03-09 23:00] VITALS: BP 109/67; PULSE 71; RESP 18; TEMP 36.6
== END 2021-03-09 23:02 | disposition home or self-care (01) ==
PROVIDERS: Emergency Provider Emergency Medicine; PCP Internal Medicine Adolescent Medicine
DX: R10.11 Right upper quadrant pain (principal); R10.31 Right lower quadrant pain; K21.9 Gastro-esophageal reflux disease without esophagitis; F41.9 Anxiety disorder, unspecified; G43.709 Chronic migraine without aura, not intractable, without status migrainosus; F17.290 Nicotine dependence, other tobacco product, uncomplicated
CPT/HCPCS: 74177; 80053; 81025; 82150; 83690; 84145; 85025; 85651; 86140; 96365; 96375; 99283; J2405; Q9967

== ENCOUNTER → 2021-03-10 09:48 | Outpatient (CLI) | payer OTHER, SELFPAY ==
--- NOTE | 2021-03-10 09:48 | US_ITS ---
FINAL REPORT CLINICAL HISTORY: Pelvic pain, wanting to check ovaries-- ut removed FINDINGS: Transvaginal sonographic images of the pelvis were obtained. The uterus is surgically absent. The right ovary measures 4 cm in length and left ovary measures 4.6 cm in length. Normal blood flow seen to the ovaries. The right ovary demonstrates a 1.9 cm cyst or follicle. The left ovary demonstrates a 1.9 cm cyst or follicle with small amount of free fluid surrounding the left ovary which is possibly related to a recently ruptured cyst. IMPRESSION: Cysts or follicles in both ovaries with a small amount of free fluid surrounding the left ovary consistent with a recently ruptured cyst or follicle. Reviewed, Interpreted and Dictated by Navi Eid MD Transcribed by Kasey Jara Authenticated by Navi Eid MD on 03/10/2021 12:45:20 PM [facility]
== END ==
LOC: RAD 09:48
PROVIDERS: PCP Internal Medicine Adolescent Medicine; Visit Provider Nurse Practitioner Obstetrics & Gynecology
DX: R10.2 Pelvic and perineal pain (principal); N94.89 Other specified conditions associated with female genital organs and menstrual cycle
CPT/HCPCS: 76830

== ENCOUNTER → 2021-04-28 07:47 | Outpatient (CLI) | payer OTHER, SELFPAY ==
[2021-04-28 08:39] LABS: Urine Pregnancy, HCG Qual. Negative (Negative)
== END ==
PROVIDERS: Visit Provider Internal Medicine Gastroenterology
DX: Z01.818 Encounter for other preprocedural examination (principal); Z11.52 Encounter for screening for COVID-19; Z13.810 Encounter for screening for upper gastrointestinal disorder; Z12.11 Encounter for screening for malignant neoplasm of colon
CPT/HCPCS: 81025; C9803; U0003; U0005

== ENCOUNTER 2021-04-30 08:33 | Day surgery (SDC) | payer OTHER, SELFPAY ==
--- NOTE | 2021-04-28 12:44 | SUR.PREOP ---
No answer, Left message @ this time
[2021-04-28 13:12] VITALS: BMI 30.2
[2021-04-30] VITALS (7 sets, daily range): BP systolic 100–106; BP diastolic 63–82; PULSE 77–92; RESP 16–18; TEMP 36.6; O2SAT 94–98
--- NOTE | 2021-04-30 08:59 | P.PN_ITS ---
[facility] Anesthesia Checklist - Patient Identification Patient Identification: Arm Band - Structural Data Admitted From: Home Planned Operative Procedure/s: EGD/Colonoscopy Consent for Planned Operative Procedure(s) Verified: Yes - NPO Status Verified Time NPO: 08:00 (Sip of water) - Additional verifications Anesthesia Reactions: No Hx Blood Transfusions: No Blood Transfusion Reaction: No - Airway Assessment C-Spine Mobility Assessed: Yes TMJ Mobility Assessed: Yes Dentition: Good Dentition - Neurological Assessment Level of Consciousness: Awake Hx Seizures: No Numbness or tingling in extremities: No - Anesthesia Plan Anesthesia Risk discussed: Yes Anesthesia Plan: Verified ASA Class: I Anesthesia Type: MAC [facility] History I have reviewed the patient's past medical history: Yes Medical History: Reports:: Anxiety, Depression, Migraine Denies:: Cancer, Diabetes Mellitus Type 1, Diabetes Mellitus Type 2, MRSA, Seizures *Have you ever received a pneumonia vaccine?: No *Have you received a flu vaccine this season?: No Other Medical History: Reports: Sinus Problems. Denies: Blood Transfusion Reaction Anesthesia experience/problems:: None Laterality Cases: Bilateral: Tonsillectomy, Other Other Surgeries: Yes: No Previous Surgery, Hysterectomy-Partial Amputation: No Fractures: No - *Social History Last grade of school completed: High school graduate Smoking Status: Current every day smoker Tobacco Type: e-cigarettes # Packs/Day (cigarettes): 1 Alcohol Intake: never Alcohol Intake Frequency:: holidays/special occasions only Substance Use Type: denies use *Occupational Status:: unemployed Housing: house Household Members: spouse, children *Travel in the last 8 weeks: None - Psychiatric History Pschychiatric History:: Reports:: Anxiety Family Hx:: Cancer, Heart Attack [employer] history: Spontaneous
--- NOTE | 2021-04-30 09:37 | HMH.SCOPE ---
- Procedure: Date: 04/30/21 Patient Date of :: 1990 Procedure Performed:: EGD & biopsies Indications:: Abdominal pain Diarrhea Performing Provider:: Luciano Womack MD Referring Provider:: Joel Walter M.D. Sedation:: Propofol Procedure:: The gastroscope was gently passed through the incisoral orifice into the oral cavity and under direct visualization the esophagus was intubated. The endoscope was passed down the esophagus, through the stomach, and into the duodenum. Color, texture, mucosa, and anatomy of the esophagus, stomach, and duodenum were carefully examined with the scope. Findings:: Oropharynx: normal Esophagus: normal EG Junction: intact at 40 cm Cardia: normal Fundus: normal Body: normal Antrum: normal, biopsies obtained for evaluation of h.pylori infection Duodenal bulb: normal Duodenum (second and third portion): normal, biopsies obtained for evaluation of celiac disease Impression: Overall normal EGD No evidence of ulcer disease or hiatus hernia Specimens:: Gastric and small bowel Recommendations:: Symptomatic therapy as indicated for probable IBS Complications:: None Estimated blood obtained (mL): 0
--- NOTE | 2021-04-30 09:42 | HMH.SCOPE ---
- Procedure: Date: 04/30/21 Patient Date of :: 1990 Procedure Performed:: Colonoscopy & biopsies Indications:: Abdominal pain Diarrhea Performing Provider:: Luciano Womack MD Referring Provider:: Dr. Joel Walter Sedation:: Propofol Procedure:: After placing the patient in the left lateral decubitus position, the colonoscopy was gently inserted into the rectum and under direct visualization advanced to the cecum which was identified by transillumination in the right lower quadrant, identification of the ileocecal valve, appendiceal orifice, and cecal strap. Color, texture, mucosa, and anatomy of the colon were carefully examined with the scope. Findings:: Anal canal: normal Rectum: normal Sigmoid colon: normal without polyps or inflammatory changes Descending colon: normal without polyps or inflammatory changes Splenic flexure: normal Transverse colon: normal without polyps or inflammatory changes Hepatic flexure: normal Ascending colon: normal without polyps or inflammatory changes Cecum: normal Terminal ileum: not visualized Random biopsies obtained for evaluation of inflammatory bowel disease. Impression: Normal colonoscopy Symptoms suggestive of IBS Specimens:: Random colon biopsies Recommendations:: Symptomatic therapy as clinically indicated Complications:: None Estimated blood obtained (mL): 0
== END 2021-04-30 10:19 | disposition home or self-care (01) ==
LOC: OUTP 08:35
PROVIDERS: PCP Internal Medicine Adolescent Medicine; Visit Provider Internal Medicine Gastroenterology
PROC: 0DJ08ZZ Inspection of Upper Intestinal Tract, Via Natural or Artificial Opening Endoscopic (ICD-10-PCS; CPT 43235; principal; 2021-04-30 09:30)
DX: R10.9 Unspecified abdominal pain (principal); R19.7 Diarrhea, unspecified; F41.9 Anxiety disorder, unspecified; F32.9 Major depressive disorder, single episode, unspecified; G43.909 Migraine, unspecified, not intractable, without status migrainosus; Z80.9 Family history of malignant neoplasm, unspecified; Z82.3 Family history of stroke; Z79.899 Other long term (current) drug therapy
CPT/HCPCS: 43239; 45378; J2704

== ENCOUNTER → 2021-06-29 07:46 | Outpatient (CLI) | payer OTHER, SELFPAY ==
[2021-06-29 08:10] LABS: Basophils # 0.1 K/mm3 (0-0.2); Basophils % 1.8 % (0.1-2.0); Eosinophils # 0.1 K/mm3 (0.0-0.4); Hematocrit 40.6 % (37.0-47.0); Hemoglobin 13.8 g/dL (12.2-16.2); Mean Corpuscular HGB Conc 33.9 g/dL (31.8-35.4); Mean Corpuscular Volume 91.4 fl (81-99); Mean Platelet Volume 8.5 fl (7.4-10.4); Monocytes # 0.3 K/mm3 (0.1-1.0); Monocytes % 6.1 % (1.7-9.3); Neutrophils # 2.9 K/mm3 (1.8-7.8); Platelet Count 248 K/mm3 (142-424); Red Blood Count 4.44 M/mm3 (4.20-5.40); Red Cell Distribution Width 13.3 % (11.5-17.5); White Blood Count 5.4 K/mm3 (4.8-10.8)
[2021-06-29 08:48] LABS: Anion Gap 14.6 mEq/L (5-15); Blood Urea Nitrogen 8 mg/dl (7-17); Calcium 9.4 mg/dl (8.4-10.2); Carbon Dioxide 22 mmol/L (22.0-30.0); Chloride 105 mmol/L (98-107); Estimated Glomerular Filt Rate 117 ml/min (>60); GFR (African American) 142 ML/MIN (>60); Glucose 126 mg/dl (74-100); Potassium 3.6 mmoL/L (3.5-5.1); Sodium 138 mmol/L (136-145)
[2021-06-29 08:50] LABS: HCG Qualitative, Serum Negative (Negative)
== END ==
PROVIDERS: Visit Provider Nurse Practitioner Obstetrics & Gynecology
DX: Z01.818 Encounter for other preprocedural examination (principal); Z11.52 Encounter for screening for COVID-19; R10.2 Pelvic and perineal pain
CPT/HCPCS: 36415; 80048; 84703; 85025; C9803; U0003; U0005

== ENCOUNTER 2021-07-01 06:02 | Day surgery (SDC) | payer OTHER, SELFPAY ==
[2021-06-29 13:29] VITALS: BMI 29.8
[2021-07-01] VITALS (10 sets, daily range): BP systolic 105–125; BP diastolic 56–80; PULSE 64–108; RESP 12–18; TEMP 36.3–43; O2SAT 97–99
--- NOTE | 2021-07-01 07:51 | P.PN_ITS ---
[facility] Anesthesia Checklist - Structural Data Admitted From: Home Planned Operative Procedure/s: dx lap Consent for Planned Operative Procedure(s) Verified: Yes - Additional verifications Anesthesia Reactions: No Hx Blood Transfusions: No Blood Transfusion Reaction: No - Airway Assessment C-Spine Mobility Assessed: Yes TMJ Mobility Assessed: Yes Dentition: Good Dentition - Neurological Assessment Level of Consciousness: Awake, Alert, Appropriate - Anesthesia Plan Anesthesia Risk discussed: Yes Anesthesia Plan: Verified ASA Class: II Anesthesia Type: General [facility] History I have reviewed the patient's past medical history: Yes Medical History: Reports:: Anxiety, Depression, Gastroesophageal Reflux Disease(GERD), Migraine, Renal Disease Denies:: Cancer, Diabetes Mellitus Type 1, Diabetes Mellitus Type 2, Internal Pacemaker, MRSA, Seizures *Have you ever received a pneumonia vaccine?: No *Have you received a flu vaccine this season?: No Other Medical History: Reports: Sinus Problems. Denies: Blood Transfusion Reaction Anesthesia experience/problems:: none Laterality Cases: Bilateral: Tonsillectomy, Other Other Surgeries: Yes: No Previous Surgery, Hysterectomy-Partial. No: Pacemaker Amputation: No Fractures: No - *Social History Last grade of school completed: Some college Smoking Status: Current every day smoker Tobacco Type: e-cigarettes # Packs/Day (cigarettes): 1 Alcohol Intake: current Alcohol Intake Frequency:: holidays/special occasions only Substance Use Type: denies use *Occupational Status:: unemployed Housing: house Household Members: spouse, children *Travel in the last 8 weeks: None - Psychiatric History Pschychiatric History:: Reports:: Anxiety, Depression Family Hx:: Cancer, Heart Attack [employer] history: Spontaneous
--- NOTE | 2021-07-01 08:49 | HMH.OPNOTE ---
Date of procedure: 07/01/21 Pre-op Diagnosis:: Pelvic pain, possible adhesions, past history of hysterectomy Post-op Diagnosis:: Endometriosis left ovary, paratubal cyst right ovary, hypervascularization of the appendix, sigmoid epiploica adhesions Procedure performed:: Diagnostic laparoscopy, removal of endometriosis left ovary, cautery of endometriosis left ovary, lysis of epiploica adhesions, removal of right paratubal cyst, laparoscopic appendectomy Surgeon:: Sukhjinder Munoz MD UPPER AND BOTTOM LACER HAND:: Slava Menon Anesthesia: GETA Estimated blood loss (mL): 100 Clinical Note:: She is a 31-year-old lady who has had a previous hysterectomy. She complains of pelvic pain as well as dyspareunia. The pain comes and goes. We had attempted a bladder rescue and this really did not help her. We also did an ultrasound that was nonconclusive. As result of the persistent pain we offered her diagnostic we will laparoscopy with possible appendectomy and possible lysis of adhesions. Operative findings:: She had a normal-appearing upper abdomen. There were some small adhesions from the epiploica of the sigmoid colon to the top of the vagina. There were 2 small powder martinez on the left ovary consistent with endometriosis. There was a 1-1/2 cm cyst adherent to the right ovary that looked like a hydatid of morganii. There was not however any tubes present. The appendix appeared hypervascular on examination. There was no other evidence of endometriosis in the pelvis. The left ovary was somewhat adherent to the left pelvic sidewall posteriorly. Operative note:: She was taken the operating room where general anesthesia was found be adequate. She is prepped with normal sterile fashion in the semilithotomy position. A sponge forcep was placed in the vagina for mobilization. I injected 10 cc of ropivacaine around the umbilicus and made a small incision within the umbilicus. I then inserted a Veress needle into the abdominal cavity and insufflated the abdominal cavity to a pressure of 20 mmHg. Then using a 5 mm trocar I entered the abdominal cavity under direct vision. I injected through and through the pubic hairline and made a small incision. I inserted a 5 mm trocar here under direct vision. Similarly in the left lower quadrant I injected through and through lateral to the inferior epigastric arteries. I made a small incision and once again under direct vision inserted a 5 mm trocar. The findings were as previously dictated. I then took down the small adhesions from the epiploica to the bladder and vaginal vault. This was followed by removing a small piece of endometriosis from the left ovary and then cauterizing another small piece of endometriosis on the left ovary. The left ovary was somewhat adherent to the left pelvic sidewall but I elected to just leave this at this point in time. I then turned my attention to the right ovary which had a proximal cyst that appeared to be hydatid of morganii. This was excised. It was drained and then placed in the pelvis for retrieval. There was some bleeding from the right ovary and I used clips here and harmonic scalpel to obtain excellent hemostasis. The right ovary was then wrapped in Interceed followed by Surgicel. We then inspected the appendix and it was really quite hypervascular looking. As result of that we elected to remove the appendix. She had right lower quadrant pain at times as well. I removed the 5 mm trocar and then inserted a 12 mm trocar under direct vision. The appendix was grasped and the mesoappendix was taken down with harmonic scalpel. I then placed the 5 mm camera in the left lower quadrant trocar port and placed a 12 mm stapler through the umbilical port. I then stapled across the base of the appendix making sure that there were no other structures in the stapler. This completely removed the appendix. I then placed an Endo Catch bag through the 12 mm port and placed the appendix as well as the s
--- NOTE | 2021-07-01 08:51 | P.PN_ITS ---
[facility] Anesthesia Record Part I Intake, IV Amount: 1,200 Estimated blood loss (mL): 0 Urine output (mL): 0 Blood Pressure: 125/77 SaO2: 98 Pulse Rate: 108 Respiratory Rate: 12 Temperature: 97.4 F Patient is:: Awake, Stable Stable to PACU at:: 08:50
--- NOTE | 2021-07-02 07:56 | P.PN_ITS ---
[facility] Anesthesia Record Part II Discharge Time: 09:20 Destination: home PACU nurse assessment reviewed?: Yes Patient Condition:: Good Anesthesia Complications:: None Swallowing reflex intact?: Yes Cyanosis?: No Blood Pressure: 120/80 Pulse Rate: 74 Temperature: 98.4 F Mental Status: Alert & Oriented Pain level:: 2 Nausea and/or vomitting:: None Intake, IV Amount: 0
[2021-07-02 07:57] VITALS: BP 120/80; PULSE 74; TEMP 36.9
== END 2021-07-01 09:56 | disposition home or self-care (01) ==
LOC: OR 06:03
PROVIDERS: PCP Internal Medicine Adolescent Medicine; Visit Provider Nurse Practitioner Obstetrics & Gynecology
PROC: (CPT 58662; principal; 2021-07-01 07:30)
DX: N80.1 Endometriosis of ovary (principal); N83.291 Other ovarian cyst, right side; K38.8 Other specified diseases of appendix; K66.0 Peritoneal adhesions (postprocedural) (postinfection); Z90.710 Acquired absence of both cervix and uterus; F41.9 Anxiety disorder, unspecified; F32.A Depression, unspecified; K21.9 Gastro-esophageal reflux disease without esophagitis; G43.909 Migraine, unspecified, not intractable, without status migrainosus; N28.9 Disorder of kidney and ureter, unspecified; Z72.0 Tobacco use; Z80.9 Family history of malignant neoplasm, unspecified; Z82.3 Family history of stroke
CPT/HCPCS: 58662; 44970; 96374; J2405; J2710

== ENCOUNTER 2021-09-21 21:07 | Emergency (ER) | payer OTHER, SELFPAY ==
[2021-09-21 21:26] VITALS: BP 133/87; PULSE 67; RESP 18; TEMP 37.1; O2SAT 98; BMI 28.3
--- NOTE | 2021-09-21 21:34 | CT_ITS ---
PROCEDURE INFORMATION: Exam: CT Abdomen And Pelvis With Contrast Exam date and time: 09/21/2021 9:42 PM Age: 31 years old Clinical indication: Abdominal pain; Localized; Lower; Prior surgery TECHNIQUE: Imaging protocol: Computed tomography of the abdomen and pelvis with contrast. Radiation optimization: All CT scans at this facility use at least one of these dose optimization techniques: automated exposure control; mA and/or kV adjustment per patient size (includes targeted exams where dose is matched to clinical indication); or iterative reconstruction. Contrast material: ISOVUE; Contrast volume: 75 ml; Contrast route: IV; COMPARISON: CT ABDOMEN PELVIS W CON 03/09/2021 9:27 PM FINDINGS: Lungs: Clear basilar lung parenchyma. Pleural spaces: No pleural fluid. Heart: Normal heart size. Liver: Normal. No mass. Gallbladder and bile ducts: Exam demonstrates features of prior cholecystectomy. No biliary tree dilation or high-density retained stones appreciated. Pancreas: Normal. No ductal dilation. Spleen: Normal. No splenomegaly. Adrenal glands: Normal. No mass. Kidneys and ureters: Kidneys enhance symmetrically and demonstrate no evidence of mass, calculus, obstruction, or inflammation. Stomach and bowel: Cecum is situated in the low posterior pelvis. There is mild diverticulosis in the distal colon. Normal stomach and small bowel. Appendix: Appendix is not seen as a discrete structure. There are surgical clips near the base of the cecum. Intraperitoneal space: Unremarkable. No free air. No significant fluid collection. Vasculature: Unremarkable. No abdominal aortic aneurysm. Lymph nodes: Unremarkable. No enlarged lymph nodes. Urinary bladder: Unremarkable as visualized. Reproductive: Prior hysterectomy. Rim enhancing cyst in the right adnexa suggests recently ruptured ovarian follicle. There are pelvic surgical clips which could relate to hysterectomy and or appendectomy. Bones/joints: Unremarkable. No acute fracture. Soft tissues: Unremarkable. IMPRESSION: Irregular enhancing cyst in the right adnexa suggests collapsing follicle. There is adjacent low volume free fluid. Otherwise, no acute abnormality to explain patient's pain.
[2021-09-21 21:38] LABS: Microscopic, Urine URINE MICROSCOPIC (MICROSCOPIC)
[2021-09-21 21:39] LABS: Appearance,Urine CLEAR (Clear); Bilirubin,Urine Negative (Negative); Blood, Urine Negative (Negative); Color,Urine YELLOW (Yellow); Glucose,Urine (UA) Negative (Negative); Ketones,Urine Negative (Negative); Leukocyte Esterase,Urine Negative (Negative); Nitrate,Urine Negative (Negative); Protein,Urine Negative (Negative); Urobilinogen,Urine 0.2 EU/dl (0.2)
[2021-09-21 21:39] LABS: Basophils # 0.1 K/mm3 (0-0.2); Basophils % 1.8 % (0.1-2.0); Eosinophils # 0.1 K/mm3 (0.0-0.4); Hematocrit 39.7 % (37.0-47.0); Hemoglobin 12.9 g/dL (12.2-16.2); Lymphocytes # 2.6 K/mm3 (0.7-4.5); Lymphocytes % 34.6 % (10-50); Mean Corpuscular HGB Conc 32.6 g/dL (31.8-35.4); Mean Corpuscular Hemoglobin 30.6 pg (27.0-31.2); Mean Platelet Volume 7.9 fl (7.4-10.4); Monocytes # 0.4 K/mm3 (0.1-1.0); Monocytes % 5.3 % (1.7-9.3); Neutrophils # 4.3 K/mm3 (1.8-7.8); Neutrophils % 57.3 % (37.0-80.0); Platelet Count 278 K/mm3 (142-424); Red Blood Count 4.22 M/mm3 (4.20-5.40); Red Cell Distribution Width 13.7 % (11.5-17.5); White Blood Count 7.4 K/mm3 (4.8-10.8)
[2021-09-21 21:48] LABS: Chloride 107 mmol/L (98-107); Potassium 3.7 mmoL/L (3.5-5.1); Sodium 139 mmol/L (136-145)
[2021-09-21 21:50] LABS: Amylase 67 U/L (30-110)
[2021-09-21 21:51] LABS: Alanine Aminotransferase 19 U/L (12-78); Albumin Level 4.7 g/dl (3.5-5.0); Albumin/Globulin Ratio 1.5 (1.1-1.8); Alkaline Phosphatase 62 U/L (38-126); Anion Gap 8.7 mEq/L (5-15); Aspartate Amino Transferase 33 U/L (14-36); Blood Urea Nitrogen 11 mg/dl (7-17); Calcium 9.5 mg/dl (8.4-10.2); Carbon Dioxide 27 mmol/L (22.0-30.0); Creatinine Clearance Estimated 162 mL/min (50-200); Estimated Glomerular Filt Rate 117 ml/min (>60); GFR (African American) 142 ML/MIN (>60); Globulin 3.1 g/dL (1.3-3.2); Glucose 104 mg/dl (74-100); Lipase 80 U/L (23-300); Total Protein,Serum 7.8 g/dl (6.3-8.2)
[2021-09-21 21:53] LABS: Bacteria,Urine Trace /lpf; RBC,Urine Occasional #/hpf (0-3)
[2021-09-21 21:54] LABS: Bilirubin,Total 0.1 mg/dl (0.2-1.3)
[2021-09-21 21:57] LABS: C-Reactive Protein 1.5 mg/L (0-4)
[2021-09-21 22:15] LABS: Erythrocyte Sedimentation Rate 15 mm/hr (0-20)
[2021-09-21 22:42] LABS: Procalcitonin 0.031 ng/mL (0.0-2.0)
--- NOTE | 2021-09-21 22:45 | HMH.EDUROGF ---
ED Disposition Clinical Impression: Pelvic pain Disposition: Home, Self-Care Condition on Discharge: Good Instructions: DI for Pelvic Pain Additional Instructions: keep appt in am and use meds as directed Referrals: Rishabh Walter MD [Primary Care Provider] - - Critical Care Critical Care Time: No Attestation: On 09/21/21, the high probability of a clinically significant, sudden or life threatening deterioration of the following system(s) required my full and direct attention, intervention and personal management. The time I documented below is in addition to time spent performing reported procedures but includes the following listed in this critical care notation. Medical Decision Making - Medical Records Medical records reviewed: Yes: I reviewed the patient's medical records. - Darius Inquiry Pt receiving controlled substance: No Vital Signs: 09/21/21 21:26 Temperature 98.7 F Temperature Source Oral Pulse Rate [Apical] 67 Respiratory Rate 18 Blood Pressure [Right Arm] 133/87 Blood Pressure Mean [Right Arm] 102 Blood Pressure Source [Right Arm] Automatic Cuff Blood Pressure Position [Right Arm] Sitting 02 Sat by Pulse Oximetry 98 Oxygen Delivery Method Room Air - Lab Data Lab results reviewed: Yes: I reviewed the patient's lab results. Lab Results 09/21/21 21:15: Urine Color Yellow, Urine Appearance Clear, Urine pH 7.0, Ur Specific [place] 1.010, Urine Protein Negative, Urine Glucose (UA) Negative, Urine Ketones Negative, Urine Blood Negative, Urine Nitrate Negative, Urine Bilirubin Negative, Urine Urobilinogen 0.2, Ur Leukocyte Esterase Negative, Urine RBC Occasional, Urine WBC None, Ur Squamous Epith Cells 5-10, Urine Bacteria Trace 09/21/21 21:22: WBC 7.4, RBC 4.22, Hgb 12.9, Hct 39.7, MCV 94.0, MCH 30.6, MCHC 32.6, RDW 13.7, Plt Count 278, MPV 7.9, Neut % (Auto) 57.3, Lymph % (Auto) 34.6, [place] % (Auto) 5.3, Eos % (Auto) 1.0, Baso % (Auto) 1.8, Neut # (Auto) 4.3, Lymph # (Auto) 2.6, [place] # (Auto) 0.4, Eos # (Auto) 0.1, Baso # (Auto) 0.1, ESR 15 09/21/21 21:22: Sodium 139, Potassium 3.7, Chloride 107, Carbon Dioxide 27, Anion Gap 8.7, BUN 11, Creatinine 0.60, Estimated Creat Clear 162, Estimated GFR 117, Est GFR ( Amer) 142, Glucose 104 H, Calcium 9.5, Total Bilirubin 0.1 L, AST 33, ALT 19, Alkaline Phosphatase 62, C-Reactive Protein 1.5, Total Protein 7.8, Albumin 4.7, Globulin 3.1, Albumin/Globulin Ratio 1.5, Amylase 67, Lipase 80 Result diagrams: 09/21/21 21:22 09/21/21 21:22 Orders (Tests/Meds): ED MEDICATIONS Generic Name Dose Route Start Last Admin Trade Name Freq PRN Reason Stop Dose Admin Sodium Chloride 1,000 mls @ 999 mls/hr 09/21/21 21:45 09/21/21 21:37 Sod Chlor 0.9% 1000ml Bag IV 09/21/21 22:45 999 mls/hr .Q1H1M IVON Administration Discontinued Medications Generic Name Dose Route Start Last Admin Trade Name Freq PRN Reason Stop Dose Admin Iopamidol 75 ml 09/21/21 21:54 09/21/21 21:56 Iopamidol-370 (76%);100ml Bottle IV 09/21/21 21:55 75 ml ONCE ONE Administration Ketorolac Tromethamine 30 mg 09/21/21 21:34 09/21/21 21:37 Ketorolac 30mg/Ml Vial IV 09/21/21 21:35 30 mg ONCE ONE Administration Ondansetron HCl 4 mg 09/21/21 21:34 09/21/21 21:37 Ondansetron 4mg/2ml Vial IV 09/21/21 21:35 4 mg ONCE ONE Administration Sodium Chloride 10 ml 09/21/21 21:54 09/21/21 21:56 Sodium Chloride 0.9% 10ml Syr (Rad Only) IV 09/21/21 21:55 10 ml ONCE ONE Administration ORDERS Category Date Time Status Amylase Stat Lab 09/21/21 21:22 Results C-Reactive Protein Stat Lab 09/21/21 21:22 Results Comprehensive Metabolic Panel Stat Lab 09/21/21 21:22 Results Lipase Stat Lab 09/21/21 21:22 Results Procalcitonin Stat Lab 08/08/22 21:22 Results - CT Data CT Scan: Abdomen, Pelvis Time Received: 22:[address] Reviewed: Yes: I have viewed the radiologist's interpretation Preliminary Findings: Abnormal (see report
--- NOTE | 2021-09-21 23:00 | PC.NURSE ---
Assisted patient to bathroom, refuses blanket at this time
[2021-09-21 23:04] VITALS: BP 130/85; PULSE 70; RESP 18; TEMP 36.8; O2SAT 98
== END 2021-09-21 23:06 | disposition home or self-care (01) ==
PROVIDERS: Emergency Provider Emergency Medicine; PCP Internal Medicine Adolescent Medicine
DX: R10.31 Right lower quadrant pain (principal); R10.2 Pelvic and perineal pain; N28.9 Disorder of kidney and ureter, unspecified; K21.9 Gastro-esophageal reflux disease without esophagitis; G43.909 Migraine, unspecified, not intractable, without status migrainosus; F32.A Depression, unspecified; F41.9 Anxiety disorder, unspecified; F17.290 Nicotine dependence, other tobacco product, uncomplicated; Z79.1 Long term (current) use of non-steroidal anti-inflammatories (NSAID); Z82.49 Family history of ischemic heart disease and other diseases of the circulatory system; Z80.9 Family history of malignant neoplasm, unspecified
CPT/HCPCS: 74177; 80053; 81001; 82150; 83690; 84145; 85025; 85651; 86140; 96361; 96374; 96375; 99285; J2405; Q9967

== ENCOUNTER 2021-10-15 07:47 | Emergency (ER) | payer OTHER, SELFPAY ==
[2021-10-15] VITALS (10 sets, daily range): BP systolic 110–132; BP diastolic 73–89; PULSE 62–86; RESP 16–18; TEMP 36.6–36.7; O2SAT 95–100; BMI 28.3
--- NOTE | 2021-10-15 08:03 | HMH.EDGENADL ---
Discharge Plan Disposition Patient Disposition: Home, Self-Care Condition: Good Prescriptions Prescriptions: No Action oxycodone-acetaminophen [Percocet] 5-325 mg tablet 1 tab PO Q6H PRN (Reason: pain) Qty: 14 0RF diclofenac sodium 75 mg tablet,delayed release (DR/EC) 75 mg PO BID Qty: 60 2RF fluoxetine 20 MG capsule 20 mg PO DAILY Referrals Follow up/Referrals: Garrett Denis MD [Primary Care Provider] - See instructions Activity Restrictions/Add. Instructions Additional Instructions/Restrictions: Follow-up with your tug captain regarding this visit to the emergency department to establish care and further characterize abdominal pain. If you have any other concerning signs or symptoms, return to the emergency department or your primary care provider for further evaluation. Clinical Impressions Clinical Impression: Abdominal pain Qualifiers: Abdominal location: unspecified location Qualified Code(s): R10.9 - Unspecified abdominal pain Instructions Patient Instructions: DI for Acute Abdominal Pain Discharge ED Provider: Christiano Kovacs General Adult HPI General Chief complaint: Abdominal Pain Stated complaint: abd pain Time Seen by Provider: 10/15/21 08:00 Mode of Arrival: Ambulatory Source of Information: Patient Limitations: No Limitations Description of Symptoms (Recalled from ER Triage Doc. by RN): to ed per pvt car with c/o lower abd pain starting yesterday. pt states I think it's an ovarian cyst pt denies any nausea, vomiting, diarrhea, fever, chills. pt states she has been taking tylenol motrin for pain with no relief of pain History of Present Illness HPI narrative: This is a 31-year-old female with history of endometriosis, ovarian cysts, cholecystectomy, appendectomy, hysterectomy who is presenting with abdominal pain. Patient states that 1 day prior to arrival, abdominal pain started while she was sitting on the couch. It is since progressed. It is 6 out of 10, stabbing, sharp, radiates to her bilateral anterior thighs. Not associated with nausea, vomiting, fevers, chills, dysuria, hematuria, abnormal vaginal discharge or bleeding, diarrhea, constipation, or any other concerning history. Patient does not notice anything that makes it better, has not noticed anything that makes it worse. Related Data Home Medications Medication Instructions Recorded Confirmed fluoxetine 20 mg capsule 20 mg PO DAILY Depression 09/21/21 10/13/21 Previous Rx's Medication Instructions Recorded oxycodone-acetaminophen 5 mg-325 1 tab PO Q6H PRN pain #14 tabs 09/28/21 mg tablet (Percocet) diclofenac sodium 75 mg 75 mg PO BID #60 tabs 10/13/21 tablet,delayed release Allergies Allergy/AdvReac Type Severity Reaction Status Date / Time amitriptyline Allergy Sleepwalk Verified 10/13/21 10:39 PFSH PFSH Medical History Anxiety Depression GERD (gastroesophageal reflux disease) Migraine Renal disease Sinus problem Surgical History History of partial hysterectomy History of tonsillectomy Family History (Updated 10/13/21 @ 10:42 by CONCHIS Liomn) Other Cancer Chemical dependency Heart attack Social History (Updated 10/13/21 @ 10:43 by CONCHIS Limon) Smoking Status: Never smoker second hand exposure: No alcohol intake: current substance use type: denies use current occupational status: unemployed household members: spouse and children housing: house caffeine: Yes ROS Obtained: Yes All systems reviewed & no additional complaints except as documented Physical Exam General General appearance: alert and in no apparent distress Head Head exam: atraumatic, normocephalic and normal inspection Eye Eye exam: Present normal appearance, PERRL and EOMI ENT ENT exam: Present normal exam, normal oropharynx, mucous membranes moist, TM
[2021-10-15 08:25] LABS: Basophils % 0.8 % (0.1-2.0); Eosinophils # 0.1 K/mm3 (0.0-0.4); Eosinophils % 1.2 % (0.1-12.0); Hematocrit 41.9 % (37.0-47.0); Hemoglobin 13.2 g/dL (12.2-16.2); Lymphocytes # 2.1 K/mm3 (0.7-4.5); Lymphocytes % 38.6 % (10-50); Mean Corpuscular HGB Conc 31.4 g/dL (31.8-35.4); Mean Corpuscular Hemoglobin 29.5 pg (27.0-31.2); Mean Corpuscular Volume 93.9 fl (81-99); Mean Platelet Volume 8.3 fl (7.4-10.4); Monocytes # 0.4 K/mm3 (0.1-1.0); Monocytes % 6.4 % (1.7-9.3); Neutrophils # 2.9 K/mm3 (1.8-7.8); Platelet Count 288 K/mm3 (142-424); Red Blood Count 4.47 M/mm3 (4.20-5.40); Red Cell Distribution Width 13.7 % (11.5-17.5); White Blood Count 5.5 K/mm3 (4.8-10.8)
[2021-10-15 08:26] LABS: Microscopic, Urine URINE MICROSCOPIC (MICROSCOPIC)
[2021-10-15 08:28] LABS: Appearance,Urine CLEAR (Clear); Bilirubin,Urine Negative (Negative); Blood, Urine Negative (Negative); Color,Urine YELLOW (Yellow); Glucose,Urine (UA) Negative (Negative); Ketones,Urine Negative (Negative); Leukocyte Esterase,Urine Negative (Negative); Nitrate,Urine Negative (Negative); Protein,Urine Negative (Negative); Specific Gravity, Urine <= 1.005 (1.005-1.030); Urobilinogen,Urine 0.2 EU/dl (0.2)
[2021-10-15 08:35] LABS: Alanine Aminotransferase 19 U/L (12-78); Albumin Level 4.6 g/dl (3.5-5.0); Albumin/Globulin Ratio 1.5 (1.1-1.8); Alkaline Phosphatase 66 U/L (38-126); Anion Gap 10.9 mEq/L (5-15); Aspartate Amino Transferase 30 U/L (14-36); Bilirubin,Total 0.3 mg/dl (0.2-1.3); Blood Urea Nitrogen 9 mg/dl (7-17); Calcium 9.2 mg/dl (8.4-10.2); Carbon Dioxide 27 mmol/L (22.0-30.0); Chloride 105 mmol/L (98-107); Creatinine Clearance Estimated 152 mL/min (50-200); Estimated Glomerular Filt Rate 117 ml/min (>60); GFR (African American) 142 ML/MIN (>60); Globulin 3.1 g/dL (1.3-3.2); Glucose 92 mg/dl (74-100); Potassium 3.9 mmoL/L (3.5-5.1); Sodium 139 mmol/L (136-145); Total Protein,Serum 7.7 g/dl (6.3-8.2)
[2021-10-15 08:52] LABS: Bacteria,Urine Trace /lpf; Squamous Epithelial Cell,Urine Occasional #/hpf (0-5)
[2021-10-15 09:32] LABS: Lipase 80 U/L (23-300)
--- NOTE | 2021-10-15 09:40 | US_ITS ---
FINAL REPORT CLINICAL HISTORY: pelvic pain FINDINGS: Transvaginal sonographic images of the pelvis were obtained. The uterus is absent. The right ovary measures 1.9 x 1.7 x 1.2 cm and left ovary measures 3.1 x 2.3 x 1.1 cm. Normal blood flow seen to the ovaries. There are multiple small follicles in the periphery of the left ovary. There is no evidence of free fluid. IMPRESSION: Absent uterus. Multiple small follicles in the periphery of the left ovary. PCOS cannot be excluded. Reviewed, Interpreted and Dictated by Tu Shukla III, MD Transcribed by Kaiden Quinn Authenticated and [facility]
--- NOTE | 2021-10-15 09:40 | PC.NURSE ---
notified rad of us order
--- NOTE | 2021-10-15 09:58 | PC.NURSE ---
PT GONE TO US
--- NOTE | 2021-10-15 10:30 | PC.NURSE ---
PT BACK FROM US
--- NOTE | 2021-10-15 10:55 | CT_ITS ---
FINAL REPORT CLINICAL HISTORY: abd pain with free pelvic fluid COMPARISON: September 21, 2021 FINDINGS: CT OF THE ABDOMEN AND PELVIS WITH CONTRAST Axial CT images of the abdomen and pelvis were obtained after the administration of intravenous contrast. Coronal reformatted images were also obtained and reviewed.This study was performed with techniques to keep radiation doses as low as reasonably achievable (ALARA). Individualized dose reduction techniques using automated exposure control or adjustment of mA and/or kV according to the patient's size were employed. Abdomen: There is a less than 5 mm noncalcified nodule and calcified granuloma in the left lung base that are stable. The heart is normal in size. The liver has an unremarkable appearance, without evidence of mass or biliary ductal dilatation. Postoperative changes are seen from cholecystectomy. The spleen is unremarkable. No adrenal mass is present. The pancreas has an unremarkable appearance. The kidneys are normal, without evidence of mass or hydronephrosis. The aorta is normal in caliber. There is no free fluid or adenopathy. No mass or abnormal fluid collection is seen. Pelvis: The appendix is not well-visualized. The urinary bladder is unremarkable. A fluid-filled structure in the right pelvis is favored represent a fluid-filled cecum. There is a small amount of free fluid which could be physiologic or reactive. There has been hysterectomy. There is no evidence of mass or adenopathy. There is no evidence of bowel obstruction. IMPRESSION: Small amount of pelvic free fluid which could be physiologic or reactive. Fluid filled structure in the right pelvis favors a fluid-filled cecum. Reviewed, Interpreted and Dictated by Tu Shukla III, MD Transcribed by Kaiden Quinn Authenticated and [facility]
--- NOTE | 2021-10-15 11:00 | PC.NURSE ---
pt resting updated on plan of care
--- NOTE | 2021-10-15 12:11 | PC.NURSE ---
rounded on pt at this time.no needs voiced
--- NOTE | 2021-10-15 12:25 | PC.NURSE ---
calling radiology to check status of CT report. radiology states it is being read now
== END 2021-10-15 13:48 | disposition home or self-care (01) ==
PROVIDERS: Emergency Provider Emergency Medicine; PCP Internal Medicine Adolescent Medicine
DX: R10.9 Unspecified abdominal pain (principal); R93.5 Abnormal findings on diagnostic imaging of other abdominal regions, including retroperitoneum; Z79.899 Other long term (current) drug therapy; Z88.8 Allergy status to other drugs, medicaments and biological substances; F32.A Depression, unspecified; F41.9 Anxiety disorder, unspecified; K21.9 Gastro-esophageal reflux disease without esophagitis; G43.909 Migraine, unspecified, not intractable, without status migrainosus; N28.9 Disorder of kidney and ureter, unspecified; Z90.711 Acquired absence of uterus with remaining cervical stump
CPT/HCPCS: 74177; 76830; 80053; 81001; 83690; 85025; 96374; 96375; 99285; J2405; Q9967

== ENCOUNTER 2021-10-30 20:05 | Emergency (ER) | payer OTHER, SELFPAY ==
[2021-10-30 20:06] VITALS: BP 128/84; PULSE 72; RESP 18; TEMP 36.5; O2SAT 98; BMI 28.7
--- NOTE | 2021-10-30 21:15 | HMH.EDABDPAI ---
Discharge Plan Disposition Patient Disposition: Home, Self-Care Chief Complaint: Abdominal Pain Prescriptions Prescriptions: No Action diclofenac sodium 75 mg tablet,delayed release (DR/EC) 75 mg PO Q12H fluoxetine 20 MG capsule 20 mg PO DAILY Referrals Follow up/Referrals: Garrett Denis MD [Primary Care Provider] - See instructions Mady Lubin DO [Staff Physician] - See instructions Clinical Impressions Clinical Impression: Abdominal pain Instructions Patient Instructions: DI for Acute Abdominal Pain Discharge ED Provider: Terrance Rouse Abdominal Pain HPI General Chief Complaint: Abdominal Pain Stated Complaint: adominal pain Time Seen by Provider: 10/30/21 21:16 Mode of Arrival: Ambulatory Source of Information: Patient and Medical Record Limitations: No Limitations Description of Symptoms (Recalled from ER Triage Doc. by RN): pt c/o LLQ pain x 1 week that gotprogessiveworse today. pt denies v/d History of Present Illness HPI narrative: pt with hx of ovarian cysts and has progressive abd/pelvic pain since last week - saw adult probation officer today - MD complaint: abdominal pain Onset (ago): day(s) Consistency: intermittent Location: suprapubic Severity: moderate Quality: cramping Associated symptoms: denies other symptoms Related Data Home Medications Medication Instructions Recorded Confirmed fluoxetine 20 mg capsule 20 mg PO DAILY Depression 09/21/21 10/30/21 diclofenac sodium 75 mg 75 mg PO Q12H 10/30/21 10/30/21 tablet,delayed release Allergies Allergy/AdvReac Type Severity Reaction Status Date / Time amitriptyline Allergy Sleepwalk Verified 10/30/21 09:30 PFSH PFSH Medical History Anxiety Depression GERD (gastroesophageal reflux disease) Migraine Renal disease Sinus problem Surgical History History of partial hysterectomy History of tonsillectomy Family History Other Cancer Chemical dependency Heart attack Social History Smoking Status: Never smoker second hand exposure: No alcohol intake: current substance use type: denies use current occupational status: unemployed Travel in the last 8 weeks: None household members: spouse and children housing: house caffeine: Yes ROS Obtained: Yes All systems reviewed & no additional complaints except as documented Constitutional Constitutional: Denies fever(s) and Denies headache(s) Eyes Eyes: Denies photophobia ENT Ears, Nose, Mouth, and Throat: Denies headache(s) Cardiovascular Cardiovascular: Denies chest pain Respiratory Respiratory: Denies cough Gastrointestinal Gastrointestingal: Reports abdominal pain; Denies vomiting Genitourinary Female Genitourinary: Reports as per HPI, Denies dysuria and Denies flank pain Musculoskeletal Musculoskeletal: Denies back pain Integumentary/Breasts Skin/Breast: Denies rash Neurologic Neurologic: Denies headache(s) Physical Exam General General appearance: alert and in no apparent distress Head Head exam: normocephalic Eye Eye exam: Present PERRL and EOMI ENT ENT exam: Present mucous membranes moist Neck Neck exam: Present trachea midline Respiratory Respiratory exam: Present normal lung sounds bilaterally Cardiovascular Cardiovascular exam: Present regular rate; Absent systolic murmur Abdominal Exam Abdominal exam: Present soft and tenderness; Absent guarding or rebound Abdominal tenderness: Present suprapubic and moderate Extremities Exam Extremities exam: Present full ROM Back Exam Back exam: Absent CVA tenderness (R) Neurological Exam Neurological exam: Present alert, oriented X3 and CN II-XII intact Psychiatric Psychiatric exam: Present normal affect Skin Skin exam: Absent rash Medical Decision Making Medical Records Med
--- NOTE | 2021-10-30 21:17 | CT_ITS ---
PROCEDURE INFORMATION: Exam: CT Abdomen And Pelvis With Contrast Exam date and time: 10/30/2021 9:32 PM Age: 31 years old Clinical indication: Abdominal pain; Generalized; Prior surgery; Surgery date: 6+ months; Surgery type: Uterus and cervix, appendix and gb; Additional info: Abd pain TECHNIQUE: Imaging protocol: Computed tomography of the abdomen and pelvis with contrast. Radiation optimization: All CT scans at this facility use at least one of these dose optimization techniques: automated exposure control; mA and/or kV adjustment per patient size (includes targeted exams where dose is matched to clinical indication); or iterative reconstruction. Contrast material: ISOVUE; Contrast volume: 75 ml; Contrast route: IV; COMPARISON: CT ABDOMEN PELVIS W CON 10/15/2021 10:57 AM FINDINGS: Liver: Normal. No mass. Gallbladder and bile ducts: Status post cholecystectomy. Pancreas: Normal enhancement. No ductal dilation. Spleen: No splenomegaly. Adrenal glands: No mass. Kidneys and ureters: No hydronephrosis. Stomach and bowel: Potential mild wall thickening of descending and rectosigmoid are decompressed. No obstruction. Appendix: No evidence of appendicitis. Intraperitoneal space: No free air. No significant fluid collection. Vasculature: No abdominal aortic aneurysm. Lymph nodes: No enlarged lymph nodes. Urinary bladder: No acute abnormality. Reproductive: Surgical clips within the pelvis. Ovarian follicles. Bones/joints: No acute fracture. Soft tissues: No soft tissue swelling. IMPRESSION: Potential mild wall thickening of the descending and rectosigmoid colon which may be secondary to underdistention developing mild colitis should be clinically excluded.
[2021-10-30 21:33] LABS: Microscopic, Urine URINE MICROSCOPIC (MICROSCOPIC)
[2021-10-30 21:35] LABS: Appearance,Urine CLEAR (Clear); Bilirubin,Urine Negative (Negative); Blood, Urine Negative (Negative); Color,Urine YELLOW (Yellow); Glucose,Urine (UA) Negative (Negative); Ketones,Urine Negative (Negative); Leukocyte Esterase,Urine Negative (Negative); Nitrate,Urine Negative (Negative); Protein,Urine Negative (Negative); Specific Gravity, Urine 1.015 (1.005-1.030); Urobilinogen,Urine 0.2 EU/dl (0.2)
[2021-10-30 21:50] LABS: Amorphous Sediment,Urine 1+ /lpf; Bacteria,Urine 1+ /lpf
[2021-10-30 21:51] LABS: Basophils # 0.1 K/mm3 (0-0.2); Basophils % 1.2 % (0.1-2.0); Eosinophils # 0.1 K/mm3 (0.0-0.4); Eosinophils % 1.4 % (0.1-12.0); Hematocrit 42.3 % (37.0-47.0); Hemoglobin 13.7 g/dL (12.2-16.2); Lymphocytes # 3.1 K/mm3 (0.7-4.5); Lymphocytes % 35.6 % (10-50); Mean Corpuscular HGB Conc 32.3 g/dL (31.8-35.4); Mean Corpuscular Hemoglobin 29.4 pg (27.0-31.2); Mean Corpuscular Volume 91.1 fl (81-99); Mean Platelet Volume 7.7 fl (7.4-10.4); Monocytes # 0.5 K/mm3 (0.1-1.0); Monocytes % 5.5 % (1.7-9.3); Neutrophils # 4.9 K/mm3 (1.8-7.8); Neutrophils % 56.3 % (37.0-80.0); Platelet Count 322 K/mm3 (142-424); Red Blood Count 4.64 M/mm3 (4.20-5.40); Red Cell Distribution Width 13.4 % (11.5-17.5); White Blood Count 8.8 K/mm3 (4.8-10.8)
[2021-10-30 22:04] LABS: Alanine Aminotransferase 32 U/L (12-78); Albumin Level 4.4 g/dl (3.5-5.0); Albumin/Globulin Ratio 1.4 (1.1-1.8); Alkaline Phosphatase 70 U/L (38-126); Anion Gap 13.8 mEq/L (5-15); Aspartate Amino Transferase 36 U/L (14-36); Blood Urea Nitrogen 12 mg/dl (7-17); Calcium 8.8 mg/dl (8.4-10.2); Carbon Dioxide 30 mmol/L (22.0-30.0); Chloride 101 mmol/L (98-107); Creatinine Clearance Estimated 132 mL/min (50-200); Estimated Glomerular Filt Rate 98 ml/min (>60); GFR (African American) 119 ML/MIN (>60); Globulin 3.1 g/dL (1.3-3.2); Glucose 83 mg/dl (74-100); Lipase 85 U/L (23-300); Potassium 3.8 mmoL/L (3.5-5.1); Sodium 141 mmol/L (136-145); Total Protein,Serum 7.5 g/dl (6.3-8.2)
[2021-10-30 22:20] LABS: Bilirubin,Total < 0.1 mg/dl (0.2-1.3)
[2021-10-30 23:09] VITALS: BP 125/80; PULSE 70; RESP 16; TEMP 36.6; O2SAT 99
== END 2021-10-30 23:12 | disposition home or self-care (01) ==
PROVIDERS: Emergency Provider Emergency Medicine; PCP Internal Medicine Adolescent Medicine
DX: R10.32 Left lower quadrant pain (principal)
CPT/HCPCS: 74177; 80053; 81001; 83690; 85025; 99284; Q9967

== ENCOUNTER → 2021-11-21 08:07 | Outpatient (CLI) | payer OTHER, SELFPAY ==
[2021-11-21 08:48] LABS: Basophils # 0.1 K/mm3 (0-0.2); Basophils % 1.8 % (0.1-2.0); Eosinophils # 0.1 K/mm3 (0.0-0.4); Eosinophils % 1.4 % (0.1-12.0); Hematocrit 39.6 % (37.0-47.0); Hemoglobin 13.2 g/dL (12.2-16.2); Lymphocytes % 38.7 % (10-50); Mean Corpuscular HGB Conc 33.4 g/dL (31.8-35.4); Mean Corpuscular Hemoglobin 30.6 pg (27.0-31.2); Mean Corpuscular Volume 91.6 fl (81-99); Mean Platelet Volume 7.7 fl (7.4-10.4); Monocytes # 0.3 K/mm3 (0.1-1.0); Monocytes % 5.3 % (1.7-9.3); Neutrophils # 2.8 K/mm3 (1.8-7.8); Neutrophils % 52.9 % (37.0-80.0); Platelet Count 293 K/mm3 (142-424); Red Blood Count 4.32 M/mm3 (4.20-5.40); Red Cell Distribution Width 13.2 % (11.5-17.5); White Blood Count 5.3 K/mm3 (4.8-10.8)
[2021-11-21 09:08] LABS: Chloride 103 mmol/L (98-107); Potassium 4.2 mmoL/L (3.5-5.1); Sodium 141 mmol/L (136-145)
[2021-11-21 09:10] LABS: Blood Urea Nitrogen 12 mg/dl (7-17); Estimated Glomerular Filt Rate 117 ml/min (>60); GFR (African American) 142 ML/MIN (>60)
[2021-11-21 09:11] LABS: Alanine Aminotransferase 48 U/L (12-78); Albumin Level 4.7 g/dl (3.5-5.0); Albumin/Globulin Ratio 1.7 (1.1-1.8); Alkaline Phosphatase 62 U/L (38-126); Anion Gap 17.2 mEq/L (5-15); Aspartate Amino Transferase 59 U/L (14-36); Bilirubin,Total 0.3 mg/dl (0.2-1.3); Calcium 8.8 mg/dl (8.4-10.2); Carbon Dioxide 25 mmol/L (22.0-30.0); Globulin 2.7 g/dL (1.3-3.2); Glucose 106 mg/dl (74-100); Total Protein,Serum 7.4 g/dl (6.3-8.2)
[2021-11-21 09:34] LABS: HCG,Quantitative < 2 mIU/ml (0-5.42)
== END ==
PROVIDERS: PCP Internal Medicine Adolescent Medicine; Visit Provider Obstetrics & Gynecology
DX: Z01.812 Encounter for preprocedural laboratory examination (principal); Z20.822 Contact with and (suspected) exposure to COVID-19; N80.9 Endometriosis, unspecified
CPT/HCPCS: 36415; 80053; 84702; 85025; C9803; U0003; U0005

== ENCOUNTER 2021-11-23 07:08 | Day surgery (SDC) | payer OTHER, SELFPAY ==
[2021-11-19 09:09] VITALS: BMI 28.7
[2021-11-23] VITALS (10 sets, daily range): BP systolic 98–145; BP diastolic 54–96; PULSE 61–93; RESP 16–18; TEMP 36.3–43; O2SAT 95–99
--- NOTE | 2021-11-23 08:33 | EXP.ANES.CKL ---
PFSH PFS Medical History Allergies Cholecystectomy planned Depression Endometriosis GERD (gastroesophageal reflux disease) Migraine Sinus headache Sinus problem Urinary tract infection Surgical History History of appendectomy History of laparoscopy History of partial hysterectomy History of tonsillectomy [place] teeth removed Family History Other Cancer Chemical dependency Heart attack Social History Smoking Status: Never smoker second hand exposure: No alcohol intake: current substance use type: denies use current occupational status: unemployed Travel in the last 8 weeks: None household members: spouse and children housing: house caffeine: Yes [facility] Anesthesia Checklist Patient Identification Patient Identification: Verbal (Name & ) Structural Data Admitted From: Home Planned Operative Procedure/s: dx lap Consent for Planned Operative Procedure(s) Verified: Yes NPO Status Verified Time NPO: 00:00 Additional verifications Anesthesia Reactions: No Hx Blood Transfusions: No Blood Transfusion Reaction: No Airway Assessment C-Spine Mobility Assessed: Yes TMJ Mobility Assessed: Yes Dentition: Good Dentition Neurological Assessment Level of Consciousness: Awake, Alert and Appropriate Anesthesia Plan Anesthesia Risk discussed: Yes Anesthesia Plan: Verified ASA Class: II Anesthesia Type: General
--- NOTE | 2021-11-23 10:21 | EXP.OP.NOTE ---
Date of procedure: 11/23/21 Pre-op Diagnosis:: 1. Pelvic pain 2. Abdominal pain 3. Endometriosis 4. Anxiety 5. Depression Post-op Diagnosis:: 1. Pelvic pain 2. Abdominal pain 3. Endometriosis 4. Anxiety 5. Depression Procedure performed:: Laparoscopy, bilateral oophorectomy Surgeon:: Mady Lubin DO Analytical Technician(s):: n/a IMPLEMENTATION SPECIALIST PAYROLL:: Other Anesthesia: GETA Estimated blood loss (mL): 2 Clinical Note:: Ms Marlen Norris is 31 yo [id number] who presents for scheduled surgery. She complains of chronic pelvic pain. She tried Orilissa but experienced severe back pain and stopped it. She also tried Myfembree and Diclofenac wihtout success. She has history of chronic pelvic pain and endometriosis. History of vaginal hysterectomy, bilateral salpingectomy, anterior repair, posterior repair, repair of enterocele in 2018. She had a laparoscopy in June 2021 with removal of endometriosis left ovary, cautery of endometriosis left ovary, lysis of epiploica adhesions, removal of right paratubal cyst, laparoscopic appendectomy. She admits pain resolved after she recovered from surgery but then returned. Pelvic ultrasound 10/15/21 demonstrated?absent uterus and multiple small follicles in the periphery of the left ovary.? PCOS cannot be excluded. She states nothing is helping with the pain. She feels that the pain is increasing her depression. Operative findings:: On laparoscopy, normal appearing stomach, liver and bowels. Surgically absent uterus and bilateral fallopian tubes. Bilateral ovaries grossly normal. Operative note:: Risks, benefits and alternatives were discussed with the patient. Risks include but are not limited to bleeding, infection, damage to adjacent structures and VTE. Patient voiced understanding and agreed to proceed with surgery. She was wheeled back to the operating room and placed under general anesthesia without difficulty. She was placed in the dorsal lithotomy position and prepped and draped in normal sterile fashion. A straight catheter was used to drain the bladder. Attention was then drawn to the abdomen. A 2cm infraumbilical incision was made. Veress needle was tested and inserted intraabdominally without difficulty. Opening pressure of 4 mm Hg. Abdomen was then insulflated to 15 mm Hg. Trocar was inserted through infraumbilical incision and laparoscope was inserted. Abdomen was viewed in its entirety. See findings above. Pictures were taken. Left lower quadrant was transilluminated. 2 cm incision was made and 11 mm disposable blunt trocar was inserted into the abdomen under direct laparoscopic visualization. Trocar was removed and sleeve was left in place. Right lower quadrant was transilluminated. A 5 mm incision was made and a 5 mm disposable trocar was inserted into the abdomen under direct laparoscopic visualization. Obturator was removed and sleeve was left in place. Right ovary was grasped and Ligasure was used to transect the right IP ligament. Right ovary was placed in an endo pouch and removed from the body. Same procedure was carried out on the contralateral side. Bilateral ovaries will be sent to pathology for review. Pelvis was irrigated. Hemostasis was noted. Pictures were taken. Keke was applied over bilateral pedicles. Left lower quadrant trocar was removed under direct laparoscopic visualization. Right lower quadrant trocar was removed under direct laparoscopic visualization. Pneumoperitoneum was released into the atmosphere. Infraumbilical trocar was removed under direct laparoscopic visualization to ensure no herniation of bowel or omentum. Skin incisions were closed with 2-0 Vicryl. Dermabond was applied over closed skin incisions. Patient was cleaned and placed into the dorsal supine position. She awoke from anesthesia without difficulty. She was transported to the recovery room in stable condition. She was given instructions for discharge and to follow-up in the office in 2 weeks at which time pathology will be reviewed. Cond
--- NOTE | 2021-11-23 10:26 | P.PNANES_ITS ---
[facility] Anesthesia Record Part I Anesthesia Record I Intake, IV Amount: 700 Estimated blood loss (mL): 10 Urine output (mL): 0 Blood Products used (#): none Blood Pressure: 145/88 SaO2: 95 Pulse Rate: 90 Respiratory Rate: 16 Temperature: 98.2 F Patient is:: Drowsy and Stable Stable to PACU at:: 10:20
--- NOTE | 2021-11-24 07:44 | EXP.ANES.II ---
[facility] Anesthesia Record Part II Anesthesia Record Part II Discharge Time: 10:50 Destination: Surgical Day Care (OP Surgery) PACU nurse assessment reviewed?: Yes Patient Condition:: Good Anesthesia Complications:: None Swallowing reflex intact?: Yes Cyanosis?: No Blood Pressure: 134/86 Pulse Rate: 71 Temperature: 97.9 F Mental Status: Alert & Oriented Pain level:: 0 Nausea and/or vomitting:: None Intake, IV Amount: 0
[2021-11-24 07:45] VITALS: BP 134/86; PULSE 71; TEMP 36.6
== END 2021-11-23 11:21 | disposition home or self-care (01) ==
PROVIDERS: PCP Internal Medicine Adolescent Medicine; Visit Provider Obstetrics & Gynecology
PROC: (CPT 49320; principal; 2021-11-23 08:45)
DX: N80.9 Endometriosis, unspecified (principal); R10.9 Unspecified abdominal pain; R10.2 Pelvic and perineal pain; F41.9 Anxiety disorder, unspecified; F32.A Depression, unspecified; Z79.899 Other long term (current) drug therapy; N83.02 Follicular cyst of left ovary; N83.01 Follicular cyst of right ovary
CPT/HCPCS: 58661; J2405

== ENCOUNTER → 2022-02-18 09:19 | Outpatient (CLI) | payer OTHER, SELFPAY ==
--- NOTE | 2022-02-18 09:23 | XR_ITS ---
FINAL REPORT CLINICAL HISTORY: SCIATICA R SIDE FINDINGS: SACROILIAC JOINTS 3 views were obtained. There is no acute fracture or dislocation. The joint spaces are intact. There is no soft tissue abnormality. IMPRESSION: No acute bony abnormality. Reviewed, Interpreted and Dictated by Winnie Barone MD Transcribed by Myrna Love Authenticated and [facility]
== END ==
LOC: RAD 09:19
PROVIDERS: PCP Internal Medicine Adolescent Medicine; Visit Provider Nurse Practitioner Family
DX: G57.01 Lesion of sciatic nerve, right lower limb (principal); M54.31 Sciatica, right side
CPT/HCPCS: 72202

== ENCOUNTER 2022-03-29 17:11 | Emergency (ER) | payer OTHER, SELFPAY ==
[2022-03-29 17:20] VITALS: BP 128/85; PULSE 86; RESP 15; TEMP 36.6; O2SAT 99; BMI 30.2
[2022-03-29 17:30] VITALS: BP 118/87; PULSE 83; O2SAT 99
--- NOTE | 2022-03-29 17:43 | HMH.EDGENADL ---
Discharge Plan Disposition Patient Disposition: Home, Self-Care Condition: Good Prescriptions Prescriptions: New dicyclomine 20 mg tablet 20 mg PO TID PRN (Reason: pain) Qty: 20 0RF ondansetron 4 mg tablet,disintegrating 4 mg PO Q8H PRN (Reason: nausea and vomiting) 4 Days Qty: 12 0RF hydrocortisone acetate [Anusol-HC] 25 mg suppository 25 mg [place] Q12H PRN (Reason: hemorrhoids) Qty: 12 0RF No Action fluoxetine 20 mg capsule 20 mg PO DAILY Referrals Follow up/Referrals: Garrett Denis MD [Primary Care Provider] - See instructions Activity Restrictions/Add. Instructions Additional Instructions/Restrictions: You were evaluated in the emergency department today. Please pharmacy picking tech your prescriptions at the pharmacy and take them as needed for symptoms. Follow-up with your primary care provider over the next 48 hours. Orally hydrate and eat a bland diet. Return to the emergency department for any new or worsening symptoms. Clinical Impressions Clinical Impression: Lower abdominal pain, Hemorrhoid Instructions Patient Instructions: DI for Hemorrhoids, DI for Acute Abdominal Pain Discharge ED Provider: Chela Marinelli General Adult HPI General Chief complaint: Abdominal Pain Stated complaint: abd pain Time Seen by Provider: 03/29/22 17:22 Mode of Arrival: Ambulatory Source of Information: Patient Limitations: No Limitations Description of Symptoms (Recalled from ER Triage Doc. by RN): PT STATES SHE HAS LOWER ABDOMINAL PAIN THAT STARTED AROUND 7PM LAST NIGHT, LAST BM YESTERDAY MORNING, PT STATES SHE NOTICED BLOOD COMING FROM HER RECTUM, REPORTS PAIN 7/10 AND SAYS PAIN STARTED CRAMPING PAIN AND IS NOW A SHARP, SHOOTING PAIN, STATES SHE HAS HAD A HYSTERECTOMY, APPENDECTOMY, AND GALLBLADDER REMOVED History of Present Illness HPI narrative: This patient is a 31-year-old female with a history of endometriosis, chronic pelvic pain status post hysterectomy and bilateral oophorectomy, appendectomy, and cholecystectomy presenting to the emergency department for evaluation with concern for pelvic pain. She states that it started around 7:00 PM last night and is worsened today. She states she is also having diarrhea. She noted bright red blood on the toilet paper when wiping after having a bowel movement, but she denies any significant blood in the toilet, in her stools, or any melena. She denies any vaginal bleeding or abnormal vaginal discharge. She also denies any fevers, chills, chest pain, shortness of breath, nausea, or vomiting. Nothing seems to make her symptoms better or worse. She describes it as feeling like severe period cramps. No other concerns noted today. Related Data Home Medications Medication Instructions Recorded Confirmed fluoxetine 20 mg capsule 20 mg PO DAILY Depression 03/29/22 03/29/22 Previous Rx's Medication Instructions Recorded dicyclomine 20 mg tablet 20 mg PO TID PRN pain #20 tabs 03/29/22 hydrocortisone acetate 25 mg 25 mg [place] Q12H PRN hemorrhoids #12 03/29/22 rectal suppository (Anusol-HC) ea ondansetron 4 mg disintegrating 4 mg PO Q8H PRN nausea and 03/29/22 tablet vomiting 4 days #12 tabs Allergies Allergy/AdvReac Type Severity Reaction Status Date / Time amitriptyline Allergy Sleepwalk Verified 11/30/21 12:55 PFSH PFS Disclaimer: The information contained in this section may have been updated after the patient was seen, as this information can be updated by other users. Medical History Allergies Cholecystectomy planned Depression Endometriosis GERD (gastroesophageal reflux disease) Migraine Sinus headache Sinus problem Urinary tract infection Surgical History History of appendectomy History of bilateral oophorectomy History of laparoscopy History of partial hysterectomy History of tonsillectomy [place] teeth removed Family Hist
--- NOTE | 2022-03-29 17:56 | PC.NURSE ---
Rounded on patient, she reports no needs at this time. Pt sitting up on ED stretcher watching phone. Call light within reach
[2022-03-29 18:00] VITALS: BP 127/86; PULSE 69; RESP 14; O2SAT 99
[2022-03-29 18:02] LABS: Basophils # 0.1 K/mm3 (0-0.2); Basophils % 0.7 % (0.1-2.0); Chloride 109 mmol/L (98-107); Eosinophils # 0.1 K/mm3 (0.0-0.4); Eosinophils % 0.8 % (0.1-12.0); Hemoglobin 12.8 g/dL (12.2-16.2); Lymphocytes # 1.8 K/mm3 (0.7-4.5); Lymphocytes % 18.6 % (10-50); Mean Corpuscular HGB Conc 32.8 g/dL (31.8-35.4); Mean Corpuscular Hemoglobin 30.4 pg (27.0-31.2); Mean Corpuscular Volume 92.6 fl (81-99); Monocytes # 0.6 K/mm3 (0.1-1.0); Monocytes % 6.4 % (1.7-9.3); Neutrophils # 6.9 K/mm3 (1.8-7.8); Neutrophils % 73.6 % (37.0-80.0); Platelet Count 234 K/mm3 (142-424); Red Blood Count 4.21 M/mm3 (4.20-5.40); Red Cell Distribution Width 12.9 % (11.5-17.5); Sodium 141 mmol/L (136-145); White Blood Count 9.4 K/mm3 (4.8-10.8)
[2022-03-29 18:05] LABS: Alanine Aminotransferase 29 U/L (12-78); Alkaline Phosphatase 61 U/L (38-126); Aspartate Amino Transferase 33 U/L (14-36); Bilirubin,Total 0.3 mg/dl (0.2-1.3); Blood Urea Nitrogen 12 mg/dl (7-17); Calcium 8.7 mg/dl (8.4-10.2); Carbon Dioxide 26 mmol/L (22.0-30.0); Creatinine Clearance Estimated 162 mL/min (50-200); Estimated Glomerular Filt Rate 117 ml/min (>60); GFR (African American) 142 ML/MIN (>60); Glucose 101 mg/dl (74-100); Lipase 58 U/L (23-300)
[2022-03-29 18:06] LABS: Albumin Level 4.4 g/dl (3.5-5.0); Albumin/Globulin Ratio 1.4 (1.1-1.8); Globulin 3.2 g/dL (1.3-3.2); Total Protein,Serum 7.6 g/dl (6.3-8.2)
[2022-03-29 18:14] LABS: Microscopic, Urine URINE MICROSCOPIC (MICROSCOPIC)
[2022-03-29 18:16] LABS: Appearance,Urine CLEAR (Clear); Bilirubin,Urine Negative (Negative); Blood, Urine Negative (Negative); Color,Urine YELLOW (Yellow); Glucose,Urine (UA) Negative (Negative); Ketones,Urine TRACE (Negative); Leukocyte Esterase,Urine Negative (Negative); Nitrate,Urine Negative (Negative); PH,Urine 5.5 (5.0-8.5); Protein,Urine TRACE (Negative); Specific Gravity, Urine >= 1.030 (1.005-1.030); Urobilinogen,Urine 0.2 EU/dl (0.2)
[2022-03-29 18:30] VITALS: BP 115/75; PULSE 67; RESP 14; O2SAT 99
[2022-03-29 18:30] LABS: Bacteria,Urine Trace /lpf
--- NOTE | 2022-03-29 18:35 | PC.NURSE ---
CHECKED ON PT SHE IS LAYING IN BED COMFORTABLE POSSIBLE CALL LIGHT AT BEDSIDE
--- NOTE | 2022-03-29 18:52 | CT_ITS ---
PROCEDURE INFORMATION: Exam: CT Abdomen And Pelvis With Contrast Exam date and time: 03/29/2022 7:12 PM Age: 31 years old Clinical indication: Abdominal pain; Generalized TECHNIQUE: Imaging protocol: Computed tomography of the abdomen and pelvis with contrast. Radiation optimization: All CT scans at this facility use at least one of these dose optimization techniques: automated exposure control; mA and/or kV adjustment per patient size (includes targeted exams where dose is matched to clinical indication); or iterative reconstruction. Contrast material: ISOVUE; Contrast volume: 75 ml; Contrast route: IV; Other protocol: This patient has received 3 known CTs and 0 known cardiac nuclear medicine studies in the 12 months prior to the current study. COMPARISON: CT ABDOMEN PELVIS W CON 10/30/2021 9:32 PM FINDINGS: Liver: Diffuse low-attenuation of the liver. No mass. Gallbladder and bile ducts: Post cholecystectomy change. Pancreas: Normal enhancement. No ductal dilation. Spleen: No splenomegaly. Adrenal glands: No mass. Kidneys and ureters: No hydronephrosis. Stomach and bowel: No obstruction. No mucosal thickening. Appendix: No evidence of appendicitis. Intraperitoneal space: Trace free fluid within the pelvis. Vasculature: No abdominal aortic aneurysm. Lymph nodes: No enlarged lymph nodes. Urinary bladder: No acute abnormality. Reproductive: Status post hysterectomy. Bones/joints: Mild scoliosis. Soft tissues: No soft tissue swelling. IMPRESSION: No acute findings.
[2022-03-29 20:24] VITALS: BP 112/74; PULSE 60; RESP 14; TEMP 36.6; O2SAT 99
== END 2022-03-29 20:27 | disposition home or self-care (01) ==
PROVIDERS: Emergency Provider Emergency Medicine; PCP Internal Medicine Adolescent Medicine
DX: R10.30 Lower abdominal pain, unspecified (principal); K64.9 Unspecified hemorrhoids; R10.2 Pelvic and perineal pain; G89.29 Other chronic pain; N80.9 Endometriosis, unspecified; Z90.49 Acquired absence of other specified parts of digestive tract; Z90.710 Acquired absence of both cervix and uterus; J30.9 Allergic rhinitis, unspecified; F32.A Depression, unspecified; K21.9 Gastro-esophageal reflux disease without esophagitis; G43.909 Migraine, unspecified, not intractable, without status migrainosus; Z87.440 Personal history of urinary (tract) infections; Z80.9 Family history of malignant neoplasm, unspecified; Z82.49 Family history of ischemic heart disease and other diseases of the circulatory system; F17.210 Nicotine dependence, cigarettes, uncomplicated
CPT/HCPCS: 74177; 80053; 81001; 83690; 85025; 96361; 96374; 96375; 99285; Q9967

== ENCOUNTER → 2022-05-24 08:39 | Outpatient (CLI) | payer OTHER, SELFPAY ==
--- NOTE | 2022-05-24 08:48 | XR_ITS ---
FINAL REPORT CLINICAL HISTORY: RT FOOT PAIN..no trauma FINDINGS: RIGHT CALCANEUS 2 views were obtained. There is no acute fracture or dislocation. The visualized joint spaces are intact. There is a small plantar calcaneal spur. There is no soft tissue abnormality. IMPRESSION: No acute bony abnormality. Reviewed, Interpreted and Dictated by Tu Shukla III, MD Transcribed by Kasey Jara Authenticated and [facility]
--- NOTE | 2022-05-24 08:48 | XR_ITS ---
FINAL REPORT CLINICAL HISTORY: RT FOOT PAIN..no trauma FINDINGS: RIGHT FOOT Three views of the right foot demonstrate no acute fracture or dislocation. The joint spaces are preserved. The soft tissues are unremarkable. IMPRESSION: No acute bony abnormality. Reviewed, Interpreted and Dictated by Tu Shukla III, MD Transcribed by Kasey Jara Authenticated and [facility]
== END ==
PROVIDERS: PCP Internal Medicine Adolescent Medicine; Visit Provider Internal Medicine Adolescent Medicine
DX: M79.671 Pain in right foot (principal)
CPT/HCPCS: 73630; 73650

== ENCOUNTER 2022-05-31 16:09 | Emergency (ER) | payer OTHER, SELFPAY ==
[2022-05-31 16:10] VITALS: BP 135/96; PULSE 78; RESP 17; TEMP 36.5; O2SAT 99; BMI 30.5
--- NOTE | 2022-05-31 16:20 | PC.NURSE ---
DR EMERSON AT BEDSIDE
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
--- NOTE | 2022-05-31 16:24 | PC.NURSE ---
PT PLACED IN C-COLLAR AT THIS TIME
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
[2022-05-31 16:31] VITALS: BMI 30.5
--- NOTE | 2022-05-31 16:33 | PC.NURSE ---
PT TO CT AT THIS TIME
[2022-05-31 17:01] VITALS: BP 120/83; PULSE 65; O2SAT 98
[2022-05-31 17:59] VITALS: BP 126/89; PULSE 66; RESP 16; TEMP 36.5; O2SAT 97
== END 2022-05-31 17:59 | disposition home or self-care (01) ==
PROVIDERS: Emergency Provider Emergency Medicine; PCP Internal Medicine Adolescent Medicine
DX: S09.8XXA Other specified injuries of head, initial encounter (principal); S16.1XXA Strain of muscle, fascia and tendon at neck level, initial encounter; S63.92XA Sprain of unspecified part of left wrist and hand, initial encounter; V49.40XA Driver injured in collision with unspecified motor vehicles in traffic accident, initial encounter; F17.290 Nicotine dependence, other tobacco product, uncomplicated
CPT/HCPCS: 70450; 71045; 72070; 72100; 72125; 72170; 73110; 73130; 99284; 99285

== ENCOUNTER 2022-06-03 17:50 | Emergency (ER) | payer OTHER, SELFPAY ==
[2022-06-03 17:51] VITALS: BP 122/85; PULSE 66; RESP 17; TEMP 36.9; O2SAT 98; BMI 30.5
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
[2022-06-03 18:30] VITALS: BP 130/89; PULSE 66; O2SAT 98
[2022-06-03 18:55] VITALS: BP 130/89; PULSE 87; RESP 17; TEMP 36.9; O2SAT 98
== END 2022-06-03 18:59 | disposition home or self-care (01) ==
PROVIDERS: Emergency Provider Student in an Organized Health Care Education/Training Program; PCP Internal Medicine Adolescent Medicine
DX: R51.9 Headache, unspecified (principal); M54.2 Cervicalgia; F17.290 Nicotine dependence, other tobacco product, uncomplicated; V49.40XA Driver injured in collision with unspecified motor vehicles in traffic accident, initial encounter
CPT/HCPCS: 96360; 96374; 96375; 99283; 99284

== ENCOUNTER → 2022-06-12 08:26 | Outpatient (CLI) | payer OTHER, SELFPAY ==
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
== END ==
PROVIDERS: PCP Internal Medicine Adolescent Medicine; Visit Provider Orthopaedic Surgery
DX: M25.532 Pain in left wrist (principal); S63.502A Unspecified sprain of left wrist, initial encounter
CPT/HCPCS: 73221

== ENCOUNTER 2022-08-09 10:26 | Emergency (ER) | payer OTHER, SELFPAY ==
[2022-08-09 10:27] VITALS: BP 123/86; PULSE 76; RESP 16; TEMP 36.6; O2SAT 99; BMI 29.9
--- NOTE | 2022-08-09 10:40 | CT_ITS ---
FINAL REPORT TECHNIQUE: Axial CT images of the abdomen and pelvis were obtained after the administration of IV contrast. Coronal reformatted images were also obtained and reviewed.This study was performed with techniques to keep radiation doses as low as reasonably achievable (ALARA). Individualized dose reduction techniques using automated exposure control or adjustment of mA and/or kV according to the patient's size were employed. CLINICAL HISTORY: RLQ pain COMPARISON: 03/29/2022 FINDINGS: CT OF THE ABDOMEN AND PELVIS WITH CONTRAST Abdomen: The lung bases are clear. The heart is normal in size. The liver has an unremarkable appearance, without evidence of mass or biliary ductal dilatation. Postcholecystectomy. The spleen is unremarkable. No adrenal mass is present. The pancreas has an unremarkable appearance. The kidneys are normal, without evidence of mass or hydronephrosis. The aorta is normal in caliber. There is no free fluid or adenopathy. There is wall thickening of the ascending colon with mild adjacent inflammation. Findings are worrisome for colitis. Pelvis: The appendix is not well-visualized and may be surgically absent. The urinary bladder is unremarkable. Small pelvic free fluid may be physiologic or reactive. Post hysterectomy. There is no evidence of mass or adenopathy. There is no evidence of bowel obstruction. IMPRESSION: Wall thickening ascending colon with mild adjacent inflammation worrisome for colitis. Reviewed, Interpreted and Dictated by Tu Shukla III, MD Transcribed by Kandi Ordaz Authenticated and . [facility]
--- NOTE | 2022-08-09 10:44 | PC.NURSE ---
notified rad of ct order
[2022-08-09 10:47] LABS: Basophils % 0.6 % (0.1-2.0); Eosinophils # 0.1 K/mm3 (0.0-0.4); Eosinophils % 1.5 % (0.1-12.0); Hematocrit 40.5 % (37.0-47.0); Hemoglobin 13.6 g/dL (12.2-16.2); Lymphocytes # 2.1 K/mm3 (0.7-4.5); Lymphocytes % 31.3 % (10-50); Mean Corpuscular HGB Conc 33.6 g/dL (31.8-35.4); Mean Corpuscular Hemoglobin 30.2 pg (27.0-31.2); Mean Platelet Volume 8.1 fl (7.4-10.4); Monocytes # 0.4 K/mm3 (0.1-1.0); Monocytes % 5.2 % (1.7-9.3); Neutrophils # 4.1 K/mm3 (1.8-7.8); Neutrophils % 61.5 % (37.0-80.0); Platelet Count 285 K/mm3 (142-424); Red Blood Count 4.51 M/mm3 (4.20-5.40); White Blood Count 6.7 K/mm3 (4.8-10.8)
[2022-08-09 10:53] LABS: Chloride 103 mmol/L (98-107); Sodium 140 mmol/L (136-145)
--- NOTE | 2022-08-09 10:55 | PC.NURSE ---
pt return from CT via wheelchair
[2022-08-09 10:56] LABS: Alanine Aminotransferase 40 U/L (12-78); Albumin Level 4.7 g/dl (3.5-5.0); Albumin/Globulin Ratio 1.4 (1.1-1.8); Alkaline Phosphatase 61 U/L (38-126); Aspartate Amino Transferase 49 U/L (14-36); Bilirubin,Total 0.3 mg/dl (0.2-1.3); Blood Urea Nitrogen 7 mg/dl (7-17); Carbon Dioxide 27 mmol/L (22.0-30.0); Creatinine Clearance Estimated 160 mL/min (50-200); Estimated Glomerular Filt Rate 117 ml/min (>60); GFR (African American) 141 ML/MIN (>60); Globulin 3.3 g/dL (1.3-3.2); Glucose 93 mg/dl (74-100); Lipase 59 U/L (23-300)
[2022-08-09 11:00] VITALS: BP 118/80; PULSE 72; RESP 18; O2SAT 96
[2022-08-09 11:30] VITALS: BP 129/87; PULSE 63; RESP 18; O2SAT 99
--- NOTE | 2022-08-09 11:35 | PC.NURSE ---
contacted lab to check on status of urine results-states they will get it running now.
[2022-08-09 11:38] LABS: Microscopic, Urine URINE MICROSCOPIC (MICROSCOPIC)
[2022-08-09 11:49] LABS: Appearance,Urine CLEAR (Clear); Bilirubin,Urine Negative (Negative); Blood, Urine Negative (Negative); Color,Urine YELLOW (Yellow); Glucose,Urine (UA) Negative (Negative); Ketones,Urine Negative (Negative); Leukocyte Esterase,Urine Negative (Negative); Nitrate,Urine Negative (Negative); PH,Urine 5.5 (5.0-8.5); Protein,Urine TRACE (Negative); Specific Gravity, Urine 1.025 (1.005-1.030); Urobilinogen,Urine 0.2 EU/dl (0.2)
[2022-08-09 12:00] VITALS: BP 123/75; PULSE 61; RESP 18; O2SAT 100
--- NOTE | 2022-08-09 12:00 | HMH.EDGENADL ---
Discharge Plan Disposition Patient Disposition: Home, Self-Care Prescriptions Prescriptions: New ondansetron 4 mg Tablet,Disintegrating 4 mg PO Q8H PRN (Reason: Nausea) Qty: 15 0RF ciprofloxacin HCl 500 mg tablet 500 mg PO Q12H Qty: 14 0RF metronidazole 500 mg tablet 500 mg PO Q8H 7 Days Qty: 21 0RF naproxen 500 mg tablet 500 mg PO BID PRN (Reason: pain) Qty: 20 0RF No Action methocarbamol 500 mg tablet 1,000 mg PO DAILYP PRN (Reason: Pain) estradiol 0.1 mg/24 hr patch semiweekly 1 patch transdermal WEEKLY fluoxetine 20 mg capsule 20 mg PO DAILY loratadine 10 mg tablet 10 mg PO DAILY Referrals Follow up/Referrals: Garrett Denis MD [Primary Care Provider] - See instructions Activity Restrictions/Add. Instructions Additional Instructions/Restrictions: Return for worsening pain vomiting or any other concerns within the next 8 hours otherwise follow-up with your primary care physician within next few days Clinical Impressions Clinical Impression: Colitis Instructions Patient Instructions: DI for Urinary Tract Infection (UTI), DI for Urinary Tract Infection in Children Discharge ED Provider: Mahin Chris General Adult HPI General Chief complaint: Urogenital-Female Stated complaint: RT pelvic pain nausea Time Seen by Provider: 08/09/22 10:30 Mode of Arrival: Ambulatory Source of Information: Patient Limitations: No Limitations Description of Symptoms (Recalled from ER Triage Doc. by RN): pt presents to ED c/o right lower pelvic pain x 2 days. pt states the pain woke her up in the middle of the night. pt reports hysterectomy with ovary removal and appendectomy. pt reports hx of endometriosis. History of Present Illness HPI narrative: 32-year-old female presents with 2 days of right lower pelvic pain. She said the pain woke her up in the middle the night. Pain is constant dull associated in the right lower quadrant. No dysuria hematuria fever chills cough diarrhea nausea vomiting or vaginal bleeding. She has history of hysterectomy appendectomy oophorectomy. She has history of endometriosis as well Related Data Home Medications Medication Instructions Recorded Confirmed estradiol 0.1 mg/24 hr semiweekly 1 patch transdermal WEEKLY 08/09/22 08/09/22 transdermal patch Contraception fluoxetine 20 mg capsule 20 mg PO DAILY Psych 06/26/23 06/26/23 loratadine 10 mg tablet 10 mg PO DAILY Allergy symptoms 08/09/22 08/09/22 methocarbamol 500 mg tablet 1,000 mg PO DAILYP PRN Pain 08/09/22 08/09/22 Previous Rx's Medication Instructions Recorded ciprofloxacin HCl 500 mg tablet 500 mg PO Q12H #14 tabs 08/09/22 metronidazole 500 mg tablet 500 mg PO Q8H 7 days #21 tabs 08/09/22 naproxen 500 mg tablet 500 mg PO BID PRN pain #20 tabs 08/09/22 ondansetron 4 mg disintegrating 4 mg PO Q8H PRN Nausea #15 tabs 08/09/22 tablet Allergies Allergy/AdvReac Type Severity Reaction Status Date / Time amitriptyline Allergy Sleepwalk Verified 06/07/22 11:17 [facility] Disclaimer: The information contained in this section may have been updated after the patient was seen, as this information can be updated by other users. Medical History Allergies Cholecystectomy planned Depression Endometriosis GERD (gastroesophageal reflux disease) Migraine Sinus headache Sinus problem Urinary tract infection Surgical History History of appendectomy History of bilateral oophorectomy 11/23/21 History of laparoscopy History of partial hysterectomy History of tonsillectomy [place] teeth removed Family History Other Cancer Chemical dependency Heart attack Social History Smoking Status: Current every day smoker tobacco type: e-cigarettes second hand exposure:
[2022-08-09 12:06] LABS: Bacteria,Urine 1+ /lpf; Squamous Epithelial Cell,Urine Occasional #/hpf (0-5); WBC,Urine Occasional #/hpf (0-3)
--- NOTE | 2022-08-09 12:19 | PC.NURSE ---
notified ER pt ct is resulted in the computer
[2022-08-09 12:38] VITALS: BP 118/64; PULSE 71; RESP 17; TEMP 36.8; O2SAT 98
== END 2022-08-09 12:39 | disposition home or self-care (01) ==
PROVIDERS: Emergency Provider Emergency Medicine; PCP Internal Medicine Adolescent Medicine
DX: K52.9 Noninfective gastroenteritis and colitis, unspecified (principal); F32.A Depression, unspecified; K21.9 Gastro-esophageal reflux disease without esophagitis; G43.909 Migraine, unspecified, not intractable, without status migrainosus; F17.290 Nicotine dependence, other tobacco product, uncomplicated
CPT/HCPCS: 74177; 80053; 81001; 83690; 85025; 96361; 96374; 96375; 99285; J2405; Q9967

== ENCOUNTER 2022-08-16 04:57 | Emergency (ER) | payer OTHER, SELFPAY ==
[2022-08-16 05:08] VITALS: BP 142/90; PULSE 65; RESP 16; TEMP 36.4; O2SAT 99; BMI 30.5
--- NOTE | 2022-08-16 05:16 | CT_ITS ---
PROCEDURE INFORMATION: Exam: CT Abdomen And Pelvis With Contrast Exam date and time: 08/16/2022 5:39 AM Age: 32 years old Clinical indication: Abdominal pain; Additional info: Rlq and L flank pain TECHNIQUE: Imaging protocol: Computed tomography of the abdomen and pelvis with contrast. Radiation optimization: All CT scans at this facility use at least one of these dose optimization techniques: automated exposure control; mA and/or kV adjustment per patient size (includes targeted exams where dose is matched to clinical indication); or iterative reconstruction. Contrast material: ISOVUE; Contrast volume: 75 ml; Contrast route: IV; REPORTING DATA: Count of CT and Cardiac NM exams in prior 12 months: This patient has received 7 known CTs and 0 known cardiac nuclear medicine studies in the 12 months prior to the current study. COMPARISON: CT ABDOMEN PELVIS W CON 08/09/2022 10:51 AM FINDINGS: Liver: Normal. No mass. Gallbladder and bile ducts: Prior cholecystectomy. Pancreas: Normal. No ductal dilation. Spleen: Normal. No splenomegaly. Adrenal glands: Normal. No mass. Kidneys and ureters: Normal. No hydronephrosis. Stomach and bowel: Colon is mildly distended with liquid stool. Appendix: No evidence of appendicitis. Intraperitoneal space: Unremarkable. No free air. No significant fluid collection. Vasculature: Unremarkable. No abdominal aortic aneurysm. Lymph nodes: Unremarkable. No enlarged lymph nodes. Urinary bladder: Bladder is decompressed. Reproductive: Unremarkable as visualized. Bones/joints: Unremarkable. No acute fracture. Soft tissues: Unremarkable. IMPRESSION: 1. Colon is mildly distended with liquid stool consistent with likely enteritis. No acute process or mass otherwise identified. 2. Status post cholecystectomy.
[2022-08-16 05:23] LABS: Microscopic, Urine URINE MICROSCOPIC (MICROSCOPIC)
[2022-08-16 05:26] LABS: Appearance,Urine CLEAR (Clear); Blood, Urine Negative (Negative); Color,Urine AMBER (Yellow); Glucose,Urine (UA) Negative (Negative); Ketones,Urine TRACE (Negative); Leukocyte Esterase,Urine TRACE (Negative); Nitrate,Urine POSITIVE (Negative); PH,Urine 6.5 (5.0-8.5); Protein,Urine 1+ (Negative); Specific Gravity, Urine >= 1.030 (1.005-1.030)
[2022-08-16 05:27] LABS: Bilirubin,Urine 2+ (Negative); Chloride 104 mmol/L (98-107); Potassium 3.9 mmoL/L (3.5-5.1); Sodium 141 mmol/L (136-145)
[2022-08-16 05:29] LABS: Alanine Aminotransferase 72 U/L (12-78); Amylase 80 U/L (30-110); Aspartate Amino Transferase 47 U/L (14-36); Basophils # 0.1 K/mm3 (0-0.2); Basophils % 0.8 % (0.1-2.0); Blood Urea Nitrogen 11 mg/dl (7-17); Creatinine Clearance Estimated 139 mL/min (50-200); Eosinophils # 0.1 K/mm3 (0.0-0.4); Eosinophils % 2.1 % (0.1-12.0); Estimated Glomerular Filt Rate 98 ml/min (>60); GFR (African American) 118 ML/MIN (>60); Hematocrit 42.1 % (37.0-47.0); Hemoglobin 13.6 g/dL (12.2-16.2); Lymphocytes % 34.9 % (10-50); Mean Corpuscular HGB Conc 32.3 g/dL (31.8-35.4); Mean Corpuscular Hemoglobin 29.2 pg (27.0-31.2); Mean Corpuscular Volume 90.6 fl (81-99); Monocytes # 0.4 K/mm3 (0.1-1.0); Monocytes % 6.8 % (1.7-9.3); Neutrophils # 3.2 K/mm3 (1.8-7.8); Neutrophils % 55.4 % (37.0-80.0); Platelet Count 276 K/mm3 (142-424); Red Blood Count 4.64 M/mm3 (4.20-5.40); White Blood Count 5.7 K/mm3 (4.8-10.8)
[2022-08-16 05:30] VITALS: BP 138/82; PULSE 68; RESP 18; O2SAT 99
[2022-08-16 05:30] LABS: Albumin Level 4.5 g/dl (3.5-5.0); Albumin/Globulin Ratio 1.4 (1.1-1.8); Alkaline Phosphatase 72 U/L (38-126); Bilirubin,Total 0.2 mg/dl (0.2-1.3); Calcium 8.7 mg/dl (8.4-10.2); Globulin 3.2 g/dL (1.3-3.2); Glucose 91 mg/dl (74-100); Lipase 76 U/L (23-300); Total Protein,Serum 7.7 g/dl (6.3-8.2)
[2022-08-16 05:33] LABS: Anion Gap 12.9 mEq/L (5-15); Carbon Dioxide 28 mmol/L (22.0-30.0)
[2022-08-16 05:35] LABS: C-Reactive Protein 2.6 mg/L (0-4)
[2022-08-16 05:38] LABS: RBC,Urine Occasional #/hpf (0-3)
[2022-08-16 05:39] LABS: Bacteria,Urine 2+ /lpf; Mucus,Urine 1+ /lpf
[2022-08-16 05:51] LABS: Erythrocyte Sedimentation Rate 14 mm/hr (0-20)
--- NOTE | 2022-08-16 06:00 | PC.NURSE ---
rounded on pt, she is still in pain. order obtained for IV tylenol
--- NOTE | 2022-08-16 06:23 | HMH.EDABDPAI ---
Discharge Plan Disposition Patient Disposition: Home, Self-Care Chief Complaint: Abdominal Pain Prescriptions Prescriptions: No Action oxycodone-acetaminophen [Percocet] 5-325 mg tablet 1 tab PO Q6H PRN (Reason: pain) Qty: 12 0RF estradiol 0.1 mg/24 hr patch semiweekly 1 patch transdermal WEEKLY fluoxetine 20 mg capsule 20 mg PO DAILY loratadine 10 mg tablet 10 mg PO DAILY ondansetron 4 mg Tablet,Disintegrating 4 mg PO Q8H PRN (Reason: Nausea) Qty: 15 0RF Referrals Follow up/Referrals: Garrett Denis MD [Primary Care Provider] - See instructions Clinical Impressions Clinical Impression: Enteritis Instructions Patient Instructions: DI for Acute Abdominal Pain Discharge ED Provider: Padma (ED)Terrance Abdominal Pain HPI General Chief Complaint: Abdominal Pain Stated Complaint: Abdominal Pain with nausea Time Seen by Provider: 08/16/22 06:05 Mode of Arrival: Ambulatory Source of Information: Patient and Medical Record Limitations: No Limitations Description of Symptoms (Recalled from ER Triage Doc. by RN): pt states she woke up about 30 min ago with c/o RLQ pain, nausea, and L flank pain that is burning in nature. pt states she was dx one week ago with cholitis. pt states the pain is similar. History of Present Illness HPI narrative: pt with crampy abd pain with nonbldy diarrhea - pt was seen in the ed with colitis about 1 week ago - pain is similiar - no fever reported complaint: abdominal pain Onset (ago): day(s) Consistency: intermittent Location: diffuse Severity: similar to previous episodes Associated symptoms: denies other symptoms Related Data Home Medications Medication Instructions Recorded Confirmed estradiol 0.1 mg/24 hr semiweekly 1 patch transdermal WEEKLY 08/09/22 08/11/22 transdermal patch Contraception fluoxetine 20 mg capsule 20 mg PO DAILY Psych 08/09/22 08/11/22 loratadine 10 mg tablet 10 mg PO DAILY Allergy symptoms 08/09/22 08/11/22 Previous Rx's Medication Instructions Recorded ondansetron 4 mg disintegrating 4 mg PO Q8H PRN Nausea #15 tabs 08/09/22 tablet oxycodone-acetaminophen 5 mg-325 1 tab PO Q6H PRN pain #12 tabs 08/11/22 mg tablet (Percocet) Allergies Allergy/AdvReac Type Severity Reaction Status Date / Time amitriptyline Allergy Sleepwalk Verified 08/16/22 05:24 [facility] Disclaimer: The information contained in this section may have been updated after the patient was seen, as this information can be updated by other users. Medical History (Updated 08/16/22 @ 07:03 by Terrance Rouse (BLU)MD) Allergies Depression Endometriosis GERD (gastroesophageal reflux disease) Migraine Sinus headache Sinus problem Urinary tract infection Surgical History (Updated 08/11/22 @ 16:02 by CONCHIS Mojica) History of appendectomy History of bilateral oophorectomy History of laparoscopy History of tonsillectomy History of vaginal hysterectomy [place] teeth removed Family History Other Cancer Chemical dependency Heart attack Social History Smoking Status: Current every day smoker tobacco type: e-cigarettes second hand exposure: No alcohol intake: current substance use type: denies use current occupational status: unemployed Travel in the last 8 weeks: None household members: spouse and children housing: house caffeine: Yes ROS Obtained: Yes All systems reviewed & no additional complaints except as documented Physical Exam General General appearance: alert Head Head exam: normocephalic Eye Eye exam: Present PERRL and EOMI; Absent scleral icterus ENT ENT exam: Present mucous membranes moist Neck Neck exam: Present trachea midline Respiratory Respiratory exam: Absent respiratory distress Cardiovascular Cardiovascular exam: Present regular rate Abdominal Exam Abdominal
--- NOTE | 2022-08-16 06:37 | PC.NURSE ---
assisted pt to the bathroom, pt unable to provide a diarrhea sample at this time.
[2022-08-16 07:03] VITALS: BP 121/87; PULSE 73; RESP 16; TEMP 36.6
== END 2022-08-16 07:11 | disposition home or self-care (01) ==
PROVIDERS: Emergency Provider Emergency Medicine; PCP Internal Medicine Adolescent Medicine
DX: R10.31 Right lower quadrant pain (principal); K52.9 Noninfective gastroenteritis and colitis, unspecified; F32.A Depression, unspecified; K21.9 Gastro-esophageal reflux disease without esophagitis; F17.290 Nicotine dependence, other tobacco product, uncomplicated
CPT/HCPCS: 74177; 80053; 81001; 82150; 83690; 85025; 85651; 86140; 87086; 96361; 96374; 96375; 99284; 99285; J0131; J2405; Q9967

== ENCOUNTER → 2022-12-20 13:46 | Outpatient (CLI) | payer OTHER, SELFPAY ==
--- NOTE | 2022-12-20 13:47 | MM_ITS ---
PROCEDURE INFORMATION: Exam: MG Bilateral Screening 3D Mammography Exam date and time: 12/20/2022 1:47 PM Age: 32 years old Clinical indication: Screening mammogram. Family history of breast cancer in grandmother; Baseline routine screening mammogram TECHNIQUE: Imaging protocol: Bilateral Screening tomosynthesis and 2D mammography including computer-aided detection (CAD) when performed. COMPARISON: No relevant prior studies available. FINDINGS: MAMMOGRAPHY: Breast composition: There are scattered areas of fibroglandular density. Mass: None. Architectural distortion: No new or suspicious architectural distortion. Calcifications: No new or suspicious calcifications are present Asymmetric density: No new or suspicious asymmetric density is present Skin thickening: None. Axillary adenopathy: None. IMPRESSION: No mammographic evidence of malignancy. Recommend annual screening mammography unless otherwise clinically indicated. ASSESSMENT: BI-RADS category 1: Negative
--- NOTE | 2022-12-20 13:47 | US_ITS ---
PROCEDURE INFORMATION: Exam: US Right Breast, Complete Exam date and time: 12/20/2022 2:23 PM Age: 32 years old Clinical indication: Breast pain; Right; Additional info: Right breast pain TECHNIQUE: Imaging protocol: Complete ultrasound of all four quadrants of the right breast and the retroareolar regions, including ultrasound of the axilla when performed. COMPARISON: No relevant prior studies available. FINDINGS: Breast: High resolution sonography of the RIGHT breast is unremarkable. No discrete mass or fluid collection. Other findings: Morphologically normal RIGHT axillary lymph nodes measuring up to 1.8 cm in long axis. IMPRESSION: Normal study. ASSESSMENT: BI-RADS 1: Negative: There is nothing to comment on (likelihood of cancer essentially 0%)
== END ==
PROVIDERS: PCP Internal Medicine Adolescent Medicine; Visit Provider Nurse Practitioner Obstetrics & Gynecology
DX: N64.4 Mastodynia (principal); Z80.3 Family history of malignant neoplasm of breast; Z12.31 Encounter for screening mammogram for malignant neoplasm of breast
CPT/HCPCS: 76641; 77063; 77067

== ENCOUNTER 2023-02-08 09:43 | Emergency (ER) | payer OTHER, SELFPAY ==
[2023-02-08] VITALS (7 sets, daily range): BP systolic 125–134; BP diastolic 86–97; PULSE 74–88; RESP 18–20; TEMP 36.7–36.9; O2SAT 95–100; BMI 29.6
--- NOTE | 2023-02-08 10:06 | HMH.EDGENADL ---
Discharge Plan Disposition Patient Disposition: Home, Self-Care Prescriptions Prescriptions: New benzonatate 100 mg capsule 100 mg PO TID PRN (Reason: cough) 5 Days Qty: 20 0RF albuterol sulfate 90 mcg/actuation HFA aerosol inhaler 4 inh inhalation Q4H PRN (Reason: shortness of breath or wheezing) Qty: 8.5 0RF Rx Instructions: 4 puffs every 4 hours for 48 hours then as needed for shortness of breath or wheezing following ondansetron 4 mg tablet,disintegrating 4 mg PO Q6H PRN (Reason: nausea and vomiting) 5 Days Qty: 20 0RF No Action fluoxetine 20 mg capsule See Rx Instructions .ROUTE .COMPLEX Qty: 30 11RF Dose Instruction: TAKE ONE CAPSULE BY MOUTH ONCE A DAY FOR DEPRESSION Rx Instructions: TAKE ONE CAPSULE BY MOUTH ONCE A DAY FOR DEPRESSION estradiol 0.1 mg/24 hr patch semiweekly See Rx Instructions .ROUTE .COMPLEX Qty: 8 5RF Dose Instruction: APPLY 1 PATCH TRANSDERMALLY TWICE WEEKLY Rx Instructions: APPLY 1 PATCH TRANSDERMALLY TWICE WEEKLY Referrals Follow up/Referrals: Garrett Denis MD [Primary Care Provider] - See instructions Activity Restrictions/Add. Instructions Additional Instructions/Restrictions: Symptoms are consistent with a viral syndrome symptoms are treated symptomatically may take Tylenol and ibuprofen as needed for pain body aches and chills multiple cough medicines have been prescribed as well as nausea medicine to your pharmacy. Return with any worsening symptoms. Clinical Impressions Clinical Impression: Viral syndrome, Light headed, Cough, Body aches Stand Alone Forms Stand Alone Forms: Work/School Release Instructions Patient Instructions: DI for Viral Syndrome Discharge ED Provider: Ally Dey General Adult HPI General Chief complaint: Shortness of Breath/Dyspnea Stated complaint: body aches, SOA, dizzy Time Seen by Provider: 02/08/23 10:01 History of Present Illness HPI narrative: Patient is a 32-year-old female presenting today with multiple complaints since last Tuesday including body aches subjective fever cough and feeling lightheaded. States she went to her doctor several days ago was tested for strep which was negative. She has many positive sick contacts around her all of whom have similar symptoms. She does vape but has no other history of smoking or cardiopulmonary disease in the past denies any other significant medical problems in the past. Related Data Previous Rx's Medication Instructions Recorded fluoxetine 20 mg capsule See Rx Instructions .Route 09/20/22 .COMPLEX #30 caps estradiol 0.1 mg/24 hr semiweekly See Rx Instructions .Route 12/21/22 transdermal patch .COMPLEX #8 patches albuterol sulfate 90 mcg/actuation 4 inh inhalation Q4H PRN shortness 02/08/23 aerosol inhaler of breath or wheezing #8.5 grams benzonatate 100 mg capsule 100 mg PO TID PRN cough 5 days #20 02/08/23 caps ondansetron 4 mg disintegrating 4 mg PO Q6H PRN nausea and 02/08/23 tablet vomiting 5 days #20 tabs Allergies Allergy/AdvReac Type Severity Reaction Status Date / Time amitriptyline Allergy Sleepwalk Verified 12/13/22 11:13 [facility] Disclaimer: The information contained in this section may have been updated after the patient was seen, as this information can be updated by other users. Medical History Allergies Depression Endometriosis GERD (gastroesophageal reflux disease) Migraine Sinus headache Sinus problem Urinary tract infection Surgical History History of appendectomy History of bilateral oophorectomy 11/23/21 History of laparoscopy History of tonsillectomy History of vaginal hysterectomy [place] teeth removed Family History Grandmother Cancer BREAST CANCER Other Chemical dependency Heart attack Social History (R
[2023-02-08 10:55] LABS: Basophils % 0.5 % (0.1-2.0); Eosinophils % 1.1 % (0.1-12.0); Hematocrit 38.6 % (37.0-47.0); Hemoglobin 13.2 g/dL (12.2-16.2); Lymphocytes # 1.4 K/mm3 (0.7-4.5); Lymphocytes % 40.6 % (10-50); Mean Corpuscular HGB Conc 34.3 g/dL (31.8-35.4); Mean Corpuscular Hemoglobin 30.8 pg (27.0-31.2); Mean Corpuscular Volume 89.9 fl (81-99); Mean Platelet Volume 7.9 fl (7.4-10.4); Monocytes # 0.3 K/mm3 (0.1-1.0); Monocytes % 9.4 % (1.7-9.3); Neutrophils # 1.7 K/mm3 (1.8-7.8); Neutrophils % 48.3 % (37.0-80.0); Platelet Count 218 K/mm3 (142-424); Red Blood Count 4.29 M/mm3 (4.20-5.40); Red Cell Distribution Width 12.6 % (11.5-17.5); White Blood Count 3.4 K/mm3 (4.8-10.8)
[2023-02-08 11:07] LABS: Alanine Aminotransferase 39 U/L (12-78); Albumin Level 4.5 g/dl (3.5-5.0); Albumin/Globulin Ratio 1.5 (1.1-1.8); Alkaline Phosphatase 60 U/L (38-126); Aspartate Amino Transferase 41 U/L (14-36); Bilirubin,Total 0.3 mg/dl (0.2-1.3); Blood Urea Nitrogen 6 mg/dl (7-17); Calcium 8.5 mg/dl (8.4-10.2); Carbon Dioxide 26 mmol/L (22.0-30.0); Creatinine Clearance Estimated 158 mL/min (50-200); Estimated Glomerular Filt Rate 117 ml/min (>60); GFR (African American) 141 ML/MIN (>60); Globulin 3.1 g/dL (1.3-3.2); Glucose 89 mg/dl (74-100); Total Protein,Serum 7.6 g/dl (6.3-8.2)
[2023-02-08 11:11] LABS: Anion Gap 9.9 mEq/L (5-15); Chloride 105 mmol/L (98-107); Potassium 3.9 mmoL/L (3.5-5.1); Sodium 137 mmol/L (136-145)
== END 2023-02-08 12:05 | disposition home or self-care (01) ==
PROVIDERS: Emergency Provider Student in an Organized Health Care Education/Training Program; PCP Internal Medicine Adolescent Medicine
DX: R42 Dizziness and giddiness (principal); R05.9 Cough, unspecified; B34.9 Viral infection, unspecified; F17.290 Nicotine dependence, other tobacco product, uncomplicated
CPT/HCPCS: 80053; 85025; 96361; 96374; 99284; J2405

== ENCOUNTER 2023-03-10 14:30 | Outpatient (CLI) | payer BC, SELFPAY ==
[2023-03-10 14:45] LABS: Basophils # 0.1 K/mm3 (0-0.2); Basophils % 0.8 % (0.1-2.0); Eosinophils # 0.2 K/mm3 (0.0-0.4); Eosinophils % 2.5 % (0.1-12.0); Hematocrit 38.9 % (37.0-47.0); Hemoglobin 13.4 g/dL (12.2-16.2); Lymphocytes % 32.7 % (10-50); Mean Corpuscular HGB Conc 34.5 g/dL (31.8-35.4); Mean Corpuscular Hemoglobin 30.6 pg (27.0-31.2); Mean Corpuscular Volume 88.5 fl (81-99); Mean Platelet Volume 8.1 fl (7.4-10.4); Monocytes # 0.4 K/mm3 (0.1-1.0); Monocytes % 6.3 % (1.7-9.3); Neutrophils # 3.5 K/mm3 (1.8-7.8); Neutrophils % 57.8 % (37.0-80.0); Platelet Count 239 K/mm3 (142-424); Red Blood Count 4.39 M/mm3 (4.20-5.40); White Blood Count 6.1 K/mm3 (4.8-10.8)
[2023-03-10 15:16] LABS: Chloride 106 mmol/L (98-107); Potassium 3.8 mmoL/L (3.5-5.1); Sodium 140 mmol/L (136-145)
[2023-03-10 15:19] LABS: Alanine Aminotransferase 50 U/L (12-78); Albumin Level 4.3 g/dl (3.5-5.0); Albumin/Globulin Ratio 1.5 (1.1-1.8); Alkaline Phosphatase 75 U/L (38-126); Anion Gap 10.8 mEq/L (5-15); Aspartate Amino Transferase 59 U/L (14-36); Bilirubin,Total 0.4 mg/dl (0.2-1.3); Blood Urea Nitrogen 9 mg/dl (7-17); Calcium 8.9 mg/dl (8.4-10.2); Carbon Dioxide 27 mmol/L (22.0-30.0); Estimated Glomerular Filt Rate 117 ml/min (>60); GFR (African American) 141 ML/MIN (>60); Globulin 2.8 g/dL (1.3-3.2); Glucose 81 mg/dl (74-100); Total Protein,Serum 7.1 g/dl (6.3-8.2)
== END 2023-03-10 23:59 ==
LOC: LAB 14:30
PROVIDERS: PCP Internal Medicine Adolescent Medicine; Visit Provider Nurse Practitioner Obstetrics & Gynecology
DX: R10.2 Pelvic and perineal pain (principal)
CPT/HCPCS: 36415; 80053; 85025

== ENCOUNTER 2023-04-05 07:45 | Outpatient (CLI) | payer BC, SELFPAY ==
--- NOTE | 2023-04-05 07:46 | CT_ITS ---
FINAL REPORT CLINICAL HISTORY: pelvic pain, rectovaginal fistula COMPARISON: 08/16/2022 FINDINGS: The lung bases are clear. There is moderate fatty infiltration of the liver. The gallbladder has been surgically resected. The spleen is unremarkable. The adrenals are normal. The pancreas is unremarkable. The kidneys enhance appropriately. Precontrast images demonstrate no nephrolithiasis. There is a large amount of stool present throughout the colon. The appendix is normal in appearance. The uterus has been surgically resected. There is a small focus of air in the lower pelvis, likely in the vagina, with loss of tissue planes between the anterior rectal wall and the posterior aspect of the vagina that correlates with the patient's clinical history of a rectovaginal fistula. No fluid collection to suggest an abscess is present. No focal mass or adenopathy is identified in the abdomen or pelvis. IMPRESSION: Moderate fatty infiltration of the liver. Small focus of air likely in the vagina in the lower pelvis, with loss of tissue planes between the anterior rectum and the posterior vagina, that correlates with the patient's clinical history of a rectovaginal fistula. Reviewed, Interpreted and Dictated by Navi Eid MD Transcribed by Bee Sethi Authenticated and [facility]
[2023-04-05] MEDS: IOPAMIDOL-370 (76%);100ML BOTTLE 75 ML IV (08:19)
== END 2023-04-05 23:59 ==
LOC: RAD 07:46
PROVIDERS: PCP Internal Medicine Adolescent Medicine; Visit Provider Nurse Practitioner Obstetrics & Gynecology
DX: R10.30 Lower abdominal pain, unspecified (principal); N82.3 Fistula of vagina to large intestine; R10.2 Pelvic and perineal pain
CPT/HCPCS: 74178; Q9967

== ENCOUNTER 2023-05-28 11:06 | Emergency (ER) | payer BC, SELFPAY ==
[2023-05-28 11:14] VITALS: BP 140/87; PULSE 88; RESP 18; TEMP 36.6; O2SAT 96; BMI 29.2
[2023-05-28 11:31] VITALS: BP 117/79; PULSE 80; O2SAT 99
--- NOTE | 2023-05-28 11:34 | ED_ITS ---
Discharge Plan Disposition Patient Disposition: Home, Self-Care Chief Complaint: Headache Prescriptions Prescriptions: No Action estradiol 0.1 mg/24 hr patch semiweekly See Rx Instructions .ROUTE .COMPLEX Qty: 8 5RF Dose Instruction: APPLY 1 PATCH TRANSDERMALLY TWICE WEEKLY Rx Instructions: APPLY 1 PATCH TRANSDERMALLY TWICE WEEKLY fluoxetine 40 mg capsule 40 mg PO DAILY Qty: 30 11RF hydrocodone-acetaminophen 5-325 mg tablet 1 tab PO Q6H PRN (Reason: pain) Qty: 10 0RF tramadol 50 mg tablet 50 mg PO Q6H PRN (Reason: pain) Qty: 20 0RF Referrals Follow up/Referrals: Garrett Denis MD [Primary Care Provider] - See instructions Activity Restrictions/Add. Instructions Additional Instructions/Restrictions: Follow-up with your family doctor regarding this visit to the emergency department and 0.5 cm thyroid nodule found on ultrasound. Call your family doctor to establish care for this visit to the emergency department and schedule follow-up within 48 hours to ensure improvement. If you have any worsening of your condition or any other concerning signs or symptoms, return to the emergency department or your primary care doctor for further evaluation. Clinical Impressions Clinical Impression: Fatigue, Encounter for medical assessment Discharge ED Provider: Christiano Kovacs General Adult HPI General Chief complaint: Headache Stated complaint: headaches, lump on bottom of chin, stiff neck, diz Time Seen by Provider: 05/28/23 11:11 Mode of Arrival: Ambulatory Source of Information: Patient Limitations: No Limitations Description of Symptoms (Recalled from ER Triage Doc. by RN): stiff neck, DIAZ, swollen lymph nodes History of Present Illness HPI narrative: 33-year-old female presenting with multiple complaints. Patient states that her is worried sick, wanted her to come to the emergency department. She states that she has been having headaches on and off, intermittent positional dizziness is better with resting, tightness underneath the right side of her jaw when she turns her head to the left (following with dentistry for TMJ), general fatigue. Patient states this has been going on for a while. She saw her dentist for TMJ, thought they felt lymph node underneath her chin, recommended she see her family doctor. Patient went to her family physician, they joão labs, patient has not heard anything about the labs yet, so came to the emergency department for further evaluation. No acute complaints at this time. Very well-appearing. Please note that above description of symptoms, in this electronic medical record under categorization of recalled from ER triage doctor by RN are reflective of an initial nursing assessment, however, is not reflective of my full history and physical exam that was personally taken and clarified. Consequentially, this preceding description of symptoms, which may include the patient's categorized chief complaint in the EMR, do not reflect my personal clinical impression, and the ultimate description of history of present illness and patient stated complaints should be deferred to this section of the note. Unless stated otherwise or congruent with this section of the note, additional signs, symptoms, or incongruence should be interpreted as inaccurate with my clinical impression. Related Data Previous Rx's Medication Instructions Recorded estradiol 0.1 mg/24 hr semiweekly See Rx Instructions .Route 12/21/22 transdermal patch .COMPLEX #8 patches fluoxetine 40 mg capsule 40 mg PO DAILY #30 caps 03/03/23 hydrocodone 5 mg-acetaminophen 325 1 tab PO Q6H PRN pain #10 tabs 03/10/23 mg tablet tramadol 50 mg tablet 50 mg PO Q6H PRN pain #20 tabs 03/14/23 Allergies Allergy/AdvReac Type Severity Reaction Status Date / Time amitriptyline Allergy Sleepwalk Verified 03/10/23 13:24 [facility] Disclaimer: The information contained in this section may have been updated after the patient was seen, as this information can be updated by other users. Medical History (Updated 05/28/23 @ 13:15 by Christiano Kovacs MD) Endometriosis Allergies Migraine GERD (gastroesophageal reflux disease) Depression Surgical History History of appendectomy History of bilateral oophorectomy 11/23/21 History of laparoscopy History of tonsillectomy History of vaginal hysterectomy [place] teeth removed Family History Grandmother Cancer BREAST CANCER Other Chemical dependency Heart attack Social History Smoking Status: Current every day smoker tobacco type: e-cigarettes second hand exposure: No alcohol intake: current substance use type: denies use current occupational status: unemployed Travel in the last 8 weeks: None household members: spouse and children housing: house caffeine: Yes ROS Obtained: Yes All systems reviewed & no additional complaints except as documented Physical Exam General General appearance: alert and in no apparent distress Head Head exam: atraumatic and normocephalic Eye Eye exam: Present normal appearance, PERRL and EOMI ENT ENT exam: Present mucous membranes moist Neck Neck exam: Present normal inspection, full ROM, trachea midline and lymphadenopathy (Shotty lymph submental just right of midline. No other lymphadenopathy of head or neck, clavicles, or otherwise. Thyroid within normal limits); Absent thyromegaly Respiratory Respiratory exam: Present normal lung sounds bilaterally; Absent respiratory distress, wheezes, stridor, accessory muscle use or prolonged expiratory phase Cardiovascular Cardiovascular exam: Present regular rate and normal rhythm; Absent systolic murmur Abdominal Exam Abdominal exam: Present soft; Absent distention, tenderness, guarding, rebound or rigidity Extremities Exam Extremities exam: Absent edema Neurological Exam Neurological exam: Present alert, oriented X3, CN II-XII intact and normal gait; Absent motor sensory deficit Skin Skin exam: Present warm and dry; Absent diaphoresis or erythema Medical Decision Making Medical Records Medical records reviewed: Yes I reviewed the patient's medical records. Darius Inquiry Pt receiving controlled substance: No Darius was queried for this patient: No Vital Signs: 05/28/23 11:14 05/28/23 11:31 05/28/23 12:01 Temperature 97.9 F Temperature Source Oral Pulse Rate 80 63 Pulse Rate [Right Radial] 88 Respiratory Rate 18 Blood Pressure 117/79 112/67 Blood Pressure [Right Arm] 140/87 Blood Pressure Mean [Right Arm] 104 02 Sat by Pulse Oximetry 96 99 97 Oxygen Delivery Method Room Air Room Air Room Air 05/28/23 12:31 05/28/23 13:01 Temperature Temperature Source Pulse Rate 63 68 Pulse Rate [Right Radial] Respiratory Rate Blood Pressure 127/78 125/85 Blood Pressure [Right Arm] Blood Pressure Mean [Right Arm] 02 Sat by Pulse Oximetry 99 99 Oxygen Delivery Method Room Air Room Air Lab Data Lab Results 05/28/23 11:50: WBC 6.8, RBC 4.06 L, Hgb 12.5, Hct 38.1, MCV 93.8, MCH 30.8, MCHC 32.8, RDW 13.4, Plt Count 282, MPV 7.9, Neut % (Auto) 62.5, Lymph % (Auto) 29.1, [place] % (Auto) 5.2, Eos % (Auto) 1.8, Baso % (Auto) 1.4, Neut # (Auto) 4.3, Lymph # (Auto) 2.0, [place] # (Auto) 0.4, Eos # (Auto) 0.1, Baso # (Auto) 0.1, Sodium 140, Potassium 3.9, Chloride 109 H, Carbon Dioxide 28, Anion Gap 6.9, BUN 10, Creatinine 0.60, Estimated Creat Clear 154, Estimated GFR 116, Est GFR ( Amer) 140, Glucose 97, Calcium 8.9, Total Bilirubin 0.4, AST 33, ALT 32, Alkaline Phosphatase 58, Lactate Dehydrogenase 158 L, Total Protein 6.9, Albumin 3.9, Globulin 3.0, Albumin/Globulin Ratio 1.3, TSH 0.29 L, Thyroxine (T4) 10.6 05/28/23 11:50 05/28/23 11:50 Orders (Tests/Meds): ED MEDICATIONS Discontinued Medications Generic Name Dose Route Start Last Admin Trade Name Nadeen PRN Reason Stop Dose Admin Lactated Ringer's 1,000 mls @ 999 mls/hr 05/28/23 11:35 05/28/23 11:49 Lactated Ringer's 1000 Ml Bag IV 05/28/23 12:35 999 mls/hr .Q1H1M ONE Administration ORDERS Category Date Time Status POCUS Point of Care (ER Only) Stat Exams 05/28/23 11:29 Completed CBC w/Auto Diff [Complete Blood Count Auto Diff] Stat Lab 05/28/23 11:50 Completed CMP [Comprehensive Metabolic Panel] Stat Lab 05/28/23 11:50 Completed LDH [Lactate Dehydrogenase] Stat Lab 05/28/23 11:50 Completed T4 (Thyroxine) Stat Lab 05/28/23 11:50 Completed TSH [Thyroid Stimulating Hormone] Stat Lab 05/28/23 11:50 Completed Medical Decision Narrative: 33-year-old female presenting with multiple complaints. Patient states that her is worried sick, wanted her to come to the emergency department. She states that she has been having headaches on and off, intermittent positional dizziness is better with resting, tightness underneath the right side of her jaw when she turns her head to the left (following with dentistry for TMJ), general fatigue. Patient states this has been going on for a while. She saw her dentist for TMJ, thought they felt lymph node underneath her chin, recommended she see her family doctor. Patient went to her family physician, they joão labs, patient has not heard anything about the labs yet, so came to the emergency department for further evaluation. No acute complaints at this time. Very well-appearing. Stroub 10 patient. On arrival, patient hemodynamically stable, alert, oriented, appropriate. She does have 2 submental lymph nodes that are mildly swollen, but no anterior posterior cervical chain lymphadenopathy, no supraclavicular nodes, no lymphadenopathy otherwise. No appreciable thyroid nodule. No stridor, lungs are clear to auscultation, cardiac exam normal. Overall unremarkable physical exam. Patient was given fluid bolus for symptomatic management and correction of underlying abnormalities. Workup independently interpreted and significant for nonactionable CBC or chemistry. LDH negative, TSH a little low at 0.29, but overall TSH and T4 nonactionable. See radiology read for full review of final results. Normal-appearing submental and cervical lymph nodes on bedside [id number] ultrasound. Thyroid ultrasound with 0.5 cm nodule in the right thyroid lobe. Because patient at baseline without signs or symptoms of clinical decompensation, deemed appropriate for discharge. Results were relayed to patient who voiced understanding and were agreeable to outpatient management and follow up. I discussed my clinical impression with patient and answered all questions. At this time, the evidence for any other entities in the differential is insufficient to warrant any further testing or ED observation. This was explained as well. Advisory was given that persistent or worsening symptoms require further evaluation. I confirmed the understanding of this discussion. Procedures Limited Ultrasound Indication:: Limited soft tissue ultrasound Indication: Lymphadenopathy, evaluate thyroid Identified structures: Location: Neck, thyroid Findings: Normal-appearing submental lymph nodes, 0.5 cm nodule in right lobe of thyroid Impression: 0.5 cm nodule in right lobe of thyroid, otherwise normal Images were saved to permanent archive The study was technically adequate Soft Tissue CPT Codes: CPT Neck: 90970-17 CPT Upper extremity: 58412-21 CPT Axilla: 40965-32 CPT Chest wall: 13116-17 CPT Breast: 37375-95-LF/LT (complete), 88674-08-VX/LT (limited), CPT Upper Back: 48460-27 CPT Lower Back: 83499-37 CPT Abdominal Wall: 50891-14 CPT Pelvic Wall: 05690-09 CPT Lower Extremity: 19745-73 CPT Other Soft Tissue: 36956-09 This study was performed by me, and I personally interpreted all images/videos. Based on my clinical judgement, these images were adequate and did not necessitate further imaging. Critical Care Critical Care Time Critical Care Time: No
[2023-05-28] MEDS: LACTATED RINGERS 1000ML 1,000 ML 999 ML IV (11:49)
[2023-05-28 12:01] VITALS: BP 112/67; PULSE 63; O2SAT 97
[2023-05-28 12:02] LABS: Basophils # 0.1 K/mm3 (0-0.2); Basophils % 1.4 % (0.1-2.0); Eosinophils # 0.1 K/mm3 (0.0-0.4); Eosinophils % 1.8 % (0.1-12.0); Hematocrit 38.1 % (37.0-47.0); Hemoglobin 12.5 g/dL (12.2-16.2); Lymphocytes % 29.1 % (10-50); Mean Corpuscular HGB Conc 32.8 g/dL (31.8-35.4); Mean Corpuscular Hemoglobin 30.8 pg (27.0-31.2); Mean Corpuscular Volume 93.8 fl (81-99); Mean Platelet Volume 7.9 fl (7.4-10.4); Monocytes # 0.4 K/mm3 (0.1-1.0); Monocytes % 5.2 % (1.7-9.3); Neutrophils # 4.3 K/mm3 (1.8-7.8); Neutrophils % 62.5 % (37.0-80.0); Platelet Count 282 K/mm3 (142-424); Red Blood Count 4.06 M/mm3 (4.20-5.40); Red Cell Distribution Width 13.4 % (11.5-17.5); White Blood Count 6.8 K/mm3 (4.8-10.8)
[2023-05-28 12:04] LABS: Chloride 109 mmol/L (98-107); Potassium 3.9 mmoL/L (3.5-5.1); Sodium 140 mmol/L (136-145)
[2023-05-28 12:06] LABS: Alanine Aminotransferase 32 U/L (12-78); Aspartate Amino Transferase 33 U/L (14-36); Bilirubin,Total 0.4 mg/dl (0.2-1.3); Blood Urea Nitrogen 10 mg/dl (7-17); Creatinine Clearance Estimated 154 mL/min (50-200); Estimated Glomerular Filt Rate 116 ml/min (>60); GFR (African American) 140 ML/MIN (>60)
[2023-05-28 12:07] LABS: Albumin Level 3.9 g/dl (3.5-5.0); Albumin/Globulin Ratio 1.3 (1.1-1.8); Alkaline Phosphatase 58 U/L (38-126); Anion Gap 6.9 mEq/L (5-15); Calcium 8.9 mg/dl (8.4-10.2); Carbon Dioxide 28 mmol/L (22.0-30.0); Glucose 97 mg/dl (74-100); Lactate Dehydrogenase 158 U/L (313-618); Total Protein,Serum 6.9 g/dl (6.3-8.2)
[2023-05-28 12:24] LABS: T4 (Thyroxine) 10.6 ug/dl (5.53-11.0)
[2023-05-28 12:31] VITALS: BP 127/78; PULSE 63; O2SAT 99
[2023-05-28 12:38] LABS: Thyroid Stimulating Hormone 0.29 uIU/mL (0.465-4.68)
[2023-05-28 13:01] VITALS: BP 125/85; PULSE 68; O2SAT 99
[2023-05-28 13:26] VITALS: BP 125/85; PULSE 66; RESP 15; TEMP 36.7
== END 2023-05-28 13:26 | disposition home or self-care (01) ==
PROVIDERS: Emergency Provider Emergency Medicine; PCP Internal Medicine Adolescent Medicine
DX: R53.83 Other fatigue (principal); E07.89 Other specified disorders of thyroid; R51.9 Headache, unspecified; R42 Dizziness and giddiness; F17.290 Nicotine dependence, other tobacco product, uncomplicated
CPT/HCPCS: 80053; 83615; 84436; 84443; 85025; 96360; 99284

== ENCOUNTER 2023-10-04 07:43 | Outpatient (CLI) | payer BC, SELFPAY ==
--- NOTE | 2023-10-04 07:48 | US_ITS ---
FINAL REPORT TECHNIQUE: Ultrasound images of the abdomen were obtained. CLINICAL HISTORY: NAUSEA.....WEIGHT LOSS COMPARISON: None FINDINGS: The pancreas is obscured by bowel gas. There is mild increased echogenicity in the liver, consistent with mild fatty infiltration. The gallbladder has been surgically resected. The common duct is normal. The right kidney measures 12.6 cm in length and is normal in echogenicity without hydronephrosis. The left kidney measures 11.8 cm in length and is normal in echogenicity without hydronephrosis. The spleen is unremarkable. The aorta is normal in caliber. The vena cava is unremarkable. IMPRESSION: Mild fatty infiltration of the liver, prior cholecystectomy. Reviewed, Interpreted and Dictated by Navi Eid MD Transcribed by Bee Sethi Authenticated and [facility]
== END 2023-10-04 23:59 | disposition home or self-care (01) ==
LOC: RAD 07:44
PROVIDERS: PCP Internal Medicine Adolescent Medicine; Visit Provider Internal Medicine Adolescent Medicine
DX: R11.0 Nausea (principal); R63.4 Abnormal weight loss
CPT/HCPCS: 76700

== ENCOUNTER 2024-01-24 17:38 | Emergency (ER) | payer BC, SELFPAY ==
[2024-01-24 17:39] VITALS: BP 122/86; PULSE 82; RESP 13; TEMP 36.6; O2SAT 98; BMI 21.7
[2024-01-24 17:48] VITALS: BP 122/86; PULSE 78; O2SAT 100
--- NOTE | 2024-01-24 18:26 | ED_ITS ---
Discharge Plan Disposition Patient Disposition: Home, Self-Care Prescriptions Prescriptions: No Action fluoxetine 40 mg capsule 40 mg PO DAILY Qty: 30 11RF hydrocodone-acetaminophen 5-325 mg tablet 1 tab PO Q6H PRN (Reason: pain) Qty: 10 0RF tramadol 50 mg tablet 50 mg PO Q6H PRN (Reason: pain) Qty: 20 0RF estradiol [Estrace] 2 mg tablet 2 mg PO DAILY Qty: 30 11RF Referrals Follow up/Referrals: Ry Yeh II, MD [Staff Physician] - See instructions Garrett Denis MD [Primary Care Provider] - See instructions Activity Restrictions/Add. Instructions Additional Instructions/Restrictions: Call your family doctor to establish care for this visit to the emergency department and schedule follow-up within 48 hours to ensure improvement. If you have any worsening of your condition or any other concerning signs or symptoms, return to the emergency department or your primary care doctor for further evaluation. Follow-up with Dr. Yeh for scope and other gastroenterology workup. Clinical Impressions Clinical Impression: Rectal bleeding Instructions Patient Instructions: DI for Gastrointestinal Bleeding Print Language Print Language: Telugu Discharge ED Provider: Christiano Kovacs General Adult HPI General Chief complaint: GI Bleed Stated complaint: blood in stool Time Seen by Provider: 01/24/24 17:53 Mode of Arrival: Ambulatory Source of Information: Patient Limitations: No Limitations Description of Symptoms (Recalled from ER Triage Doc. by RN): pt presents to ED with c/o right breast pain ongoing for 2 days. pt reports intermittent dark coffee ground stool for the past 2 months. pt reports today after having a bowel movement, when she wiped there were clots. History of Present Illness HPI narrative: Please note that above description of symptoms, in this electronic medical record under categorization of recalled from ER triage doctor by RN are reflective of an initial nursing assessment, however, is not reflective of my full history and physical exam that was personally taken and clarified. Consequentially, this preceding description of symptoms, which may include the patient's categorized chief complaint in the EMR, do not reflect my personal clinical impression, and the ultimate description of history of present illness and patient stated complaints should be deferred to this section of the note. Unless stated otherwise or congruent with this section of the note, additional signs, symptoms, or incongruence should be interpreted as inaccurate with my clinical impression. Related Data Previous Rx's ?Medication ?Instructions ?Recorded fluoxetine 40 mg capsule 40 mg PO DAILY #30 caps 03/03/23 hydrocodone 5 mg-acetaminophen 325 1 tab PO Q6H PRN pain #10 tabs 03/10/23 mg tablet tramadol 50 mg tablet 50 mg PO Q6H PRN pain #20 tabs 03/14/23 estradiol 2 mg tablet (Estrace) 2 mg PO DAILY #30 tabs 06/13/23 Allergies Allergy/AdvReac Type Severity Reaction Status Date / Time amitriptyline Allergy Sleepwalk Verified 03/10/23 13:24 [facility] Disclaimer: The information contained in this section may have been updated after the patient was seen, as this information can be updated by other users. Medical History (Updated 01/24/24 @ 21:55 by Christiano Kovacs MD) Endometriosis Allergies Migraine GERD (gastroesophageal reflux disease) Depression Surgical History History of appendectomy History of bilateral oophorectomy 11/23/21 History of laparoscopy History of tonsillectomy History of vaginal hysterectomy [place] teeth removed Family History Grandmother Cancer BREAST CANCER Other Chemical dependency Heart attack Social History Smoking Status: Never smoker second hand exposure: No alcohol intake: current alcohol intake frequency: holidays/special occasions only substance use type: denies use current occupational status: unemployed Travel in the last 8 weeks: None household members: spouse and children housing: house caffeine: Yes Other Medical History Have you received the Flu Vaccine for this season: No Have you received the Pneumonia Vaccine: No ROS Obtained: Yes All systems reviewed & no additional complaints except as documented Physical Exam General General appearance: alert Head Head exam: atraumatic and normocephalic Eye Eye exam: Present normal appearance, PERRL and EOMI Neck Neck exam: Present normal inspection, full ROM and trachea midline Chest Chest inspection: Present other (Breast exam normal) Respiratory Respiratory exam: Absent respiratory distress, wheezes, stridor, accessory muscle use or prolonged expiratory phase Cardiovascular Cardiovascular exam: Present other (Pulses equal symmetric in upper and lower extremities) Abdominal Exam Abdominal exam: Present soft; Absent distention, tenderness, guarding, rebound, rigidity or pulsatile mass Rectal Exam Rectal exam: Present normal rectal tone and other (No gross blood or hemorrhoids. Midline anal fissure) Extremities Exam Extremities exam: Absent edema Neurological Exam Neurological exam: Present alert, oriented X3 and CN II-XII intact; Absent motor sensory deficit Skin Skin exam: Present warm and dry; Absent diaphoresis or erythema Medical Decision Making Medical Records Medical records reviewed: Yes I reviewed the patient's medical records. Screening: Per USPSTF and CDC recommendations, given the prevalence of disease in our region, it is our hospital?s policy to screen for HIV and viral Hepatitis for all patients aged 18 and over and those with ongoing risk factors. Darius Inquiry Pt receiving controlled substance: No Darius was queried for this patient: No Vital Signs: 01/24/24 17:39 01/24/24 17:48 01/24/24 19:28 Temperature 97.8 F Temperature Source Oral Pulse Rate 78 64 Pulse Rate [Left Radial] 82 Respiratory Rate 13 Blood Pressure 122/86 113/78 Blood Pressure [Right Arm] 122/86 Blood Pressure Mean Blood Pressure Mean [Right Arm] 98 02 Sat by Pulse Oximetry 98 100 100 Oxygen Delivery Method Room Air 01/24/24 19:30 01/24/24 20:00 Temperature Temperature Source Pulse Rate 64 63 Pulse Rate [Left Radial] Respiratory Rate Blood Pressure 120/74 115/74 Blood Pressure [Right Arm] Blood Pressure Mean 87 Blood Pressure Mean [Right Arm] 02 Sat by Pulse Oximetry 100 100 Oxygen Delivery Method Lab Data Lab Results 01/24/24 18:06: WBC 6.7, RBC 4.33, Hgb 13.4, Hct 37.1, MCV 85.6, MCH 30.9, MCHC 36.1 H, RDW 13.2, Plt Count 279, MPV 7.4, Neut % (Auto) 55.2, Lymph % (Auto) 37.3, [place] % (Auto) 5.5, Eos % (Auto) 1.3, Baso % (Auto) 0.7, Neut # (Auto) 3.7, Lymph # (Auto) 2.5, [place] # (Auto) 0.4, Eos # (Auto) 0.1, Baso # (Auto) 0.1, ESR 17, PT 10.6, INR 0.94, APTT 27.1, Sodium 138, Potassium 3.8, Chloride 108 H, Carbon Dioxide 26, Anion Gap 7.8, BUN 8, Creatinine 0.70, Estimated Creat Clear 112, Estimated GFR 97, Est GFR ( Amer) 117, Glucose 98, Calcium 9.2, Total Bilirubin 0.3, AST 42 H, ALT 33, Alkaline Phosphatase 61, C-Reactive Protein 4.1 H, Total Protein 7.5, Albumin 4.5, Globulin 3.0, Albumin/Globulin Ratio 1.5, HIV 1&2 Antibody Rapid Nonreactive 01/24/24 18:22: Urine Color Yellow, Urine Appearance Clear, Urine pH 6.0, Ur Specific [place] >= 1.030, Urine Protein Negative, Urine Glucose (UA) Negative, Urine Ketones Negative, Urine Blood Negative, Urine Nitrate Negative, Urine Bilirubin Negative, Urine Urobilinogen 0.2, Ur Leukocyte Esterase Negative, Urine RBC None, Urine WBC 5-10, Ur Squamous Epith Cells 5-10, Urine Bacteria Trace 01/24/24 18:06 01/24/24 18:06 Orders (Tests/Meds): ED MEDICATIONS Generic Name Dose Route Start Last Admin Trade Name Freq PRN Reason Stop Dose Admin Sodium Chloride 10 ml 01/24/24 20:35 01/24/24 20:35 Sodium Chloride 0.9% 10ml Syr (Rad Only) IV 02/23/24 20:34 10 ml NEEDED PRN Administration Maintain IV Site Discontinued Medications Generic Name Dose Route Start Last Admin Trade Name Freq PRN Reason Stop Dose Admin Iopamidol 80 ml 01/24/24 20:35 01/24/24 20:35 Iopamidol-370 (76%);100ml Bottle IV 01/24/24 20:36 80 ml ONCE ONE Administration Sodium Chloride 50 ml 01/24/24 20:35 01/24/24 20:35 0.9 % Sodium Chloride 50 Ml Vial IV 01/24/24 20:36 50 ml ONCE ONE Administration ORDERS Category Date Time Status CT angio abdomen pelvis Stat Cat Scan 01/24/24 20:18 Completed POCUS Point of Care (ER Only) Stat Exams 01/24/24 18:26 Completed CBC w/Auto Diff [Complete Blood Count Auto Diff] Stat Lab 01/24/24 18:06 Completed CMP [Comprehensive Metabolic Panel] Stat Lab 01/24/24 18:06 Completed CRP [C-Reactive Protein] Stat Lab 12/10/24 18:06 Completed Diarrhea 6-11 Panel, Cdiff PCR Stat Lab 01/24/24 18:10 Ordered ESR [Erythrocyte Sedimentation Rate] Stat Lab 01/24/24 18:06 Completed HIV (1&2) Antibody Rapid Stat Lab 01/24/24 18:06 Completed Hep C Ab with Reflex to RNA Stat Lab 01/24/24 18:06 Received Occult Blood,Stool Stat Lab 01/24/24 18:10 Ordered PT INR [Prothrombin Time INR] Stat Lab 01/24/24 18:06 Completed PTT [Activated Partial Thrombo Time] Stat Lab 01/24/24 18:06 Completed UA [Urinalysis and Microscopic] Stat Lab 01/24/24 18:22 Completed Medical Decision Narrative: 33-year-old female history of YUMIKO/BSO on estradiol oral treatment, appendectomy, cholecystectomy, previous presenting with multiple complaints. States that she has been having abdominal cramping, lower back cramping followed by large-volume bright red blood earlier today. Only had 1 bright red blood bowel movement, has not had any since. Having crampy abdominal pain, crampy bilateral flank pain. No nausea or vomiting. No fevers or chills. No urinary symptoms. Patient also has auxillary complaint of right breast pain. States that she feels as if she was able to feel on not inferior on her right breast underneath her right nipple. No nipple drainage, overlying skin changes, trauma to the area, anything like this in the past. This is been going on for approximately 2 days and has not been getting any better. Mild in intensity. History obtained with patient. On arrival, very well-appearing. Physical exam unconcerning. Right breast exam normal. No overlying skin changes, no evidence of mass, no evidence of lymphadenopathy, no evidence of nipple drainage, unremarkable overall. Abdomen soft, nontender, nondistended on my exam. No rebound, rigidity, guarding. No overlying skin change. No flank tenderness. Rectal exam with small posterior midline anal fissure, no evidence of hemorrhoids on external or internal exam. Differential includes hemorrhoid, diverticular bleed, AVM, polyp, malignancy, IBS, IBD, infectious diarrhea, breast mass, fibrocystic tissue, among others. Patient placed on continuous cardiac monitoring and pulse oximetry with initial blood pressure 122/86, heart rate 82, O2 sat 98% on room air. Interpretation of workup demonstrates nonactionable CBC or chemistry, negative ESR. Urinalysis negative. Bedside [id number] ultrasound of the breast normal for any acute abnormality. 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 He has not had any blood or stool per vagina, fevers, chills, or any other concerns, but would like to have a CT scan to evaluate for any pelvic abnormalities. Out of abundance of caution, this was ordered, although discussion was had regarding utility. On independent interpretation, I do not appreciate any intra-abdominal abnormality that would be explain patient's pain. No obvious blush or acute GI bleed. Patient has also not had any bloody bowel movements here in the emergency department with us. Prior to the read, patient insisting to go home. I feel this is appropriate, I will contact her if anything comes back abnormal on the read that needs immediate attention. She voiced her understanding. Because patient at baseline without signs or symptoms of clinical decompensation, deemed appropriate for discharge. Results were relayed to patient who voiced understanding and were agreeable to outpatient management and follow up. I discussed my clinical impression with patient and answered all questions. At this time, the evidence for any other entities in the differential is insufficient to warrant any further testing or ED observation. This was explained as well. Advisory was given that persistent or worsening symptoms require further evaluation. I confirmed the understanding of this discussion. Train Brakeman disclaimer Much of this encounter note is an electronic public health epidemiologist spoken language to printed text. Electronic public health epidemiologist of the spoken language may permit errors. Although I have reviewed the note, some errors may still exist. Procedures Limited Ultrasound Indication:: Limited soft tissue ultrasound Indication: Right breast discomfort, family history of breast cancer Identified structures: Location: Right breast Findings: Normal breast ultrasound Impression: Normal right breast ultrasound. No evidence of mass, adenopathy, or any other abnormalities Images were saved to permanent archive The study was technically adequate Soft Tissue CPT Codes: CPT Neck: 17202-87 CPT Upper extremity: 08446-92 CPT Axilla: 63648-43 CPT Chest wall: 78709-88 CPT Breast: 62270-00-[place]/LT (complete), 38885-06-HG/LT (limited), CPT Upper Back: 71405-52 CPT Lower Back: 42207-78 CPT Abdominal Wall: 99877-96 CPT Pelvic Wall: 51363-11 CPT Lower Extremity: 91319-35 CPT Other Soft Tissue: 96959-78 This study was performed by me, and I personally interpreted all images/videos. Based on my clinical judgement, these images were adequate and did not necessitate further imaging. Critical Care Critical Care Time Critical Care Time: No
[2024-01-24 18:32] LABS: Microscopic, Urine URINE MICROSCOPIC (MICROSCOPIC)
[2024-01-24 18:32] LABS: Basophils # 0.1 K/mm3 (0-0.2); Basophils % 0.7 % (0.1-2.0); Eosinophils # 0.1 K/mm3 (0.0-0.4); Eosinophils % 1.3 % (0.1-12.0); Hematocrit 37.1 % (37.0-47.0); Hemoglobin 13.4 g/dL (12.2-16.2); Lymphocytes # 2.5 K/mm3 (0.7-4.5); Lymphocytes % 37.3 % (10-50); Mean Corpuscular HGB Conc 36.1 g/dL (31.8-35.4); Mean Corpuscular Hemoglobin 30.9 pg (27.0-31.2); Mean Corpuscular Volume 85.6 fl (81-99); Mean Platelet Volume 7.4 fl (7.4-10.4); Monocytes # 0.4 K/mm3 (0.1-1.0); Monocytes % 5.5 % (1.7-9.3); Neutrophils # 3.7 K/mm3 (1.8-7.8); Neutrophils % 55.2 % (37.0-80.0); Platelet Count 279 K/mm3 (142-424); Red Blood Count 4.33 M/mm3 (4.20-5.40); Red Cell Distribution Width 13.2 % (11.5-17.5); White Blood Count 6.7 K/mm3 (4.8-10.8)
[2024-01-24 18:40] LABS: Activated Partial Thrombo Time 27.1 seconds (22.8-30.6); INR 0.94 (0.9-1.1); Prothrombin Time 10.6 seconds (10.1-12.5)
[2024-01-24 18:45] LABS: Appearance,Urine CLEAR (Clear); Bilirubin,Urine Negative (Negative); Blood, Urine Negative (Negative); Color,Urine YELLOW (Yellow); Glucose,Urine (UA) Negative (Negative); Ketones,Urine Negative (Negative); Leukocyte Esterase,Urine Negative (Negative); Nitrate,Urine Negative (Negative); Protein,Urine Negative (Negative); Specific Gravity, Urine >= 1.030 (1.005-1.030); Urobilinogen,Urine 0.2 EU/dl (0.2)
[2024-01-24 18:50] LABS: Albumin Level 4.5 g/dl (3.5-5.0); Chloride 108 mmol/L (98-107)
[2024-01-24 18:51] LABS: Potassium 3.8 mmoL/L (3.5-5.1); Sodium 138 mmol/L (136-145)
[2024-01-24 18:53] LABS: Alanine Aminotransferase 33 U/L (12-78); Albumin/Globulin Ratio 1.5 (1.1-1.8); Alkaline Phosphatase 61 U/L (38-126); Anion Gap 7.8 mEq/L (5-15); Aspartate Amino Transferase 42 U/L (14-36); Bilirubin,Total 0.3 mg/dl (0.2-1.3); Blood Urea Nitrogen 8 mg/dl (7-17); Carbon Dioxide 26 mmol/L (22.0-30.0); Creatinine Clearance Estimated 112 mL/min (50-200); Estimated Glomerular Filt Rate 97 ml/min (>60); GFR (African American) 117 ML/MIN (>60); Total Protein,Serum 7.5 g/dl (6.3-8.2)
[2024-01-24 18:54] LABS: Calcium 9.2 mg/dl (8.4-10.2); Glucose 98 mg/dl (74-100)
[2024-01-24 19:21] LABS: Bacteria,Urine Trace /lpf
[2024-01-24 19:28] VITALS: BP 113/78; PULSE 64; O2SAT 100
[2024-01-24 19:30] VITALS: BP 120/74; PULSE 64; O2SAT 100
--- NOTE | 2024-01-24 19:33 | PC.NURSE ---
rounded on pt at this time, pt voices no needs. call light in reach.
[2024-01-24 20:00] VITALS: BP 115/74; PULSE 63; O2SAT 100
[2024-01-24 20:18] LABS: Erythrocyte Sedimentation Rate 17 mm/hr (0-20)
--- NOTE | 2024-01-24 20:18 | CT_ITS ---
PROCEDURE INFORMATION: Exam: CTA Abdomen and Pelvis With Contrast Exam date and time: 01/24/2024 8:34 PM Age: 33 years old Clinical indication: Abdominal pain; Other: Brbpr, x1, crampy abd pain TECHNIQUE: Imaging protocol: Computed tomographic angiography of the abdomen and pelvis with contrast. Exam focused on the arteries. 3D rendering (Not supervised by radiologist): MIP and/or 3D reconstructed images were created by the technologist. Radiation optimization: All CT scans at this facility use at least one of these dose optimization techniques: automated exposure control; mA and/or kV adjustment per patient size (includes targeted exams where dose is matched to clinical indication); or iterative reconstruction. Contrast material: ISOVUE 370; Contrast volume: 80 ml; Contrast route: INTRAVENOUS (IV); COMPARISON: CT ABDOMEN PELVIS WO/W CON 04/05/2023 8:02 AM FINDINGS: Lungs: Dependent bilateral lung base opacities favor atelectasis. Aorta: No aortic aneurysm. No aortic dissection. Celiac trunk and mesenteric arteries: No occlusion or significant stenosis. Renal arteries: No occlusion or significant stenosis. Right iliac arteries: No occlusion or significant stenosis. Left iliac arteries: No occlusion or significant stenosis. Liver: No mass. Gallbladder and biliary ducts: There are surgical clips within the gallbladder fossa. Pancreas: Unremarkable. No mass. No ductal dilation. Spleen: Unremarkable. No splenomegaly. Adrenal glands: Unremarkable. No mass. Kidneys and ureters: Unremarkable. No solid mass. No hydronephrosis. Stomach and bowel: See Appendix finding. Appendix: The appendix is not visualized with surgical changes at the cecum suggesting appendectomy. Intraperitoneal space: Unremarkable. No free air. No significant fluid collection. Lymph nodes: Left upper quadrant multiple prominent mesenteric nodes measuring greater than 5 mm in short axis can be seen with mild infectious or inflammatory enteritis. Urinary bladder: Bladder is decompressed limiting its evaluation. Reproductive: Unremarkable as visualized. Bones/joints: No acute fracture. Soft tissues: Unremarkable. IMPRESSION: Left upper quadrant multiple prominent mesenteric nodes measuring greater than 5 mm in short axis can be seen with mild infectious or inflammatory enteritis.
[2024-01-24] MEDS: 0.9 % SODIUM CHLORIDE 50 ML VIAL IV (20:35)
[2024-01-24] MEDS: IOPAMIDOL-370 (76%);100ML BOTTLE 80 ML IV (20:35)
[2024-01-24] MEDS: SODIUM CHLORIDE 0.9% 10ML SYR (RAD ONLY) 10 ML IV (20:35)
[2024-01-24 20:36] LABS: HIV (1&2) Antibody Rapid NONREACTIVE (NONREACTIVE)
[2024-01-24 20:51] LABS: C-Reactive Protein 4.1 mg/L (0-4)
[2024-01-24 22:03] VITALS: BP 115/74; PULSE 65; RESP 18; TEMP 36.8; O2SAT 100
[2024-01-26 09:10] LABS: HCV Ab Non Reactive (Non Reactive)
== END 2024-01-24 22:04 | disposition home or self-care (01) ==
PROVIDERS: Emergency Provider Emergency Medicine; PCP Internal Medicine Adolescent Medicine
DX: K62.5 Hemorrhage of anus and rectum (principal); R10.9 Unspecified abdominal pain; M54.50 Low back pain, unspecified; N64.59 Other signs and symptoms in breast
CPT/HCPCS: 74174; 80053; 81001; 85025; 85610; 85651; 85730; 86140; 86803; 87389; 99285; Q9967

== ENCOUNTER 2024-07-05 11:00 | Outpatient (CLI) | payer BC, SELFPAY ==
--- NOTE | 2024-07-05 11:00 | MM_ITS ---
PROCEDURE INFORMATION: Exam: MG Bilateral Screening 3D Mammography Exam date and time: 07/05/2024 11:12 AM Age: 34 years old Clinical indication: Screening. Her maternal grandmother had breast cancer. TECHNIQUE: Imaging protocol: Bilateral Screening tomosynthesis and 2D mammography including computer-aided detection (CAD) when performed. COMPARISON: 1. MG MM DIG SCREENING MAMM BI W/CAD 12/20/2022 1:47 PM 2. US BREAST RT COMPLETE 12/20/2022 2:23 PM FINDINGS: MAMMOGRAPHY: Breast composition: There are scattered areas of fibroglandular density. Mass: None. Architectural distortion: None. Calcifications: No suspicious calcifications. Asymmetric density: None. Skin thickening: None. Axillary adenopathy: None. IMPRESSION: No mammographic evidence of malignancy. Annual screening is recommended at age 40 unless otherwise clinically indicated. ASSESSMENT: BI-RADS Category 1: Negative.
== END 2024-07-05 23:59 | disposition home or self-care (01) ==
LOC: RAD 11:01
PROVIDERS: PCP Internal Medicine Adolescent Medicine; Visit Provider Nurse Practitioner Obstetrics & Gynecology
DX: Z12.31 Encounter for screening mammogram for malignant neoplasm of breast (principal); R92.323 Mammographic fibroglandular density, bilateral breasts; Z80.3 Family history of malignant neoplasm of breast
CPT/HCPCS: 77063; 77067